=== PATIENT | female | born 1985 ===

== ENCOUNTER 2020-07-15 12:23 | Outpatient (REF) | payer OTHER, SELFPAY ==
[2020-07-15 12:59] LABS: MANUAL DIFF FLAG NO
[2020-07-15 13:15] LABS: Alanine Aminotransferase 14 U/L (0-31); Albumin Level 4.6 g/dL (3.5-5.0); Alkaline Phosphatase 56 U/L (39-117); Anion Gap 13 (12-20); Aspartate Amino Transferase 15 U/L (5-31); Bilirubin Total 0.6 mg/dL (0.0-1.0); Blood Urea Nitrogen 11 mg/dL (9-16); Calcium 9.3 mg/dL (8.4-10.2); Carbon Dioxide 26 mmol/L (22-29); Chloride 106 mmol/L (96-108); Cholesterol 213 mg/dL; Estimated Glomerular Filt Rate > 60; Glucose Fasting 90 mg/dL (60-99); HDL Cholesterol 56 mg/dL; LDL Cholesterol Calculated 147 mg/dl; Potassium 4.7 mmol/L (3.3-5.1); Sodium 140 mmol/L (135-145); Total Protein 7.3 g/dL (6.5-8.0); Triglycerides 54 mg/dL
[2020-07-15 13:16] LABS: Basophils Percent Auto 0.4 % (0-2); Eosinophils Percent Auto 0.2 % (0-4); Hematocrit 41.2 % (37-47); Hemoglobin 13.5 g/dl (12.0-16.0); Imm Gran Abs Auto 0.02 X10*3/uL (0.00-0.03); Imm Gran Pct Auto 0.4 % (0.0-0.4); Lymphocytes Absolute Auto 1.4 X10*3/uL (1.2-4.9); Lymphocytes Percent Auto 27.2 % (20-40); Mean Corpuscular HGB Conc 32.8 g/dl (31.0-35.0); Mean Corpuscular Volume 91.6 fL (80-98); Monocytes Absolute Auto 0.3 X10*3/uL (0.1-1.2); Monocytes Percent Auto 5.4 % (2-11); Neutrophils Absolute Auto 3.3 X10*3/uL (2.0-8.3); Neutrophils Percent Auto 66.4 % (45-73); Platelet Count 356 X10*3/uL (160-400); Red Cell Distribution Width 12.1 % (11.0-16.0)
== END 2020-07-15 12:24 | disposition home or self-care (01) ==
LOC: HO.LAB 12:23
PROVIDERS: PCP Internal Medicine; Visit Provider Internal Medicine
DX: R63.5 Abnormal weight gain (principal); D64.9 Anemia, unspecified; E78.5 Hyperlipidemia, unspecified
CPT/HCPCS: 36415; 80053; 80061; 84443; 85025

== ENCOUNTER 2020-09-23 14:32 | Outpatient (REF) | payer OTHER, SELFPAY ==
[2020-09-24 10:37] LABS: CT PCR NOT DETECTED (Not Detect.); NG PCR NOT DETECTED (Not Detect.)
[2020-09-26 22:46] LABS: HPV mRNA E6/E7 rflx Not Detected (Not Detected)
== END 2020-09-23 14:33 | disposition home or self-care (01) ==
LOC: HO.LAB 14:32
PROVIDERS: PCP Internal Medicine; Visit Provider Obstetrics & Gynecology
DX: Z01.419 Encounter for gynecological examination (general) (routine) without abnormal findings (principal); Z11.51 Encounter for screening for human papillomavirus (HPV); Z11.3 Encounter for screening for infections with a predominantly sexual mode of transmission; N88.9 Noninflammatory disorder of cervix uteri, unspecified
CPT/HCPCS: 87491; 87591; 87624; 88142

== ENCOUNTER 2020-10-21 10:11 | Outpatient (REF) | payer OTHER, SELFPAY | END 2020-10-21 10:12 | disposition home or self-care (01) | LOC: HO.LAB 10:11 | PROVIDERS: PCP Internal Medicine; Visit Provider Obstetrics & Gynecology | DX: N88.9 Noninflammatory disorder of cervix uteri, unspecified (principal) | CPT/HCPCS: 57454; 88305 ==

== ENCOUNTER → 2020-11-04 11:20 | Outpatient (BNVA) | payer OTHER, SELFPAY | PROVIDERS: PCP Internal Medicine; Visit Provider Obstetrics & Gynecology ==

== ENCOUNTER 2021-01-12 10:34 | Outpatient (REF) | payer OTHER, SELFPAY | END 2021-01-12 10:35 | disposition home or self-care (01) | LOC: HO.HMGCLDS 10:34 | PROVIDERS: PCP Internal Medicine; Visit Provider Internal Medicine | DX: Z20.822 Contact with and (suspected) exposure to COVID-19 (principal) | CPT/HCPCS: C9803; U0003; U0005 ==

== ENCOUNTER 2021-01-23 15:50 | Outpatient (REF) | payer OTHER, SELFPAY ==
--- NOTE | ~2021-01-23 | US_ITS ---
EXAMINATION: US THYROID CLINICAL INFORMATION: Nontoxic goiter, unspecified. COMPARISON: Ultrasound soft tissue neck 01/23/2015. Ultrasound soft tissue head/neck thyroid dated 04/30/2014. TECHNIQUE: Linear transducer grayscale and color Doppler examination with attention to the region of the thyroid. FINDINGS: SIZE: Measurements of the thyroid lobes and nodules are given in sagittal, anteroposterior and transverse dimensions respectively. Right Thyroid Lobe: 5.7 x 1.9 x 1.9 cm, volume 10.5 mL. Previously 5.1 x 1.7 x 1.4 cm, volume 6.6 mL. Parenchyma: The gland echotexture is homogeneous. Thyroid vascularity is normal. Left Thyroid Lobe: 4.8 x 1.1 x 1.9 cm, volume 4.9 mL. Previously 4.6 x 0.8 x 1.4 cm, volume 2.6 mL. Parenchyma: The gland echotexture is homogeneous. Thyroid vascularity is normal. Isthmus: 0.3 cm in maximum AP dimension. Previously 0.2 cm. Estimated total number of nodules greater than or equal to 1 cm: 0. Materials Management Supervisor nodules are described as follows: 1. Location: Right inferior. Size: 0.5 x 0.2 x 0.3 cm, volume 0.02 mL. Previously: Not documented on prior study. Nodule characteristics: Composition: Solid (2). Echogenicity: Isoechoic (1). Shape: Not taller than wide (0). Margins: Ill-defined (0). Echogenic Foci: None (0). ACR TI-RADS total points: 3 ACR TI-RADS category: 3 NODES: There is a small right cervical lymph node adjacent to the thyroid gland. This measures 1.1 x 0.5 x 0.2 cm in transverse sagittal and AP dimension. This is normal in size and demonstrates normal ultrasound morphology and flow.. US/US thyroid IMPRESSION: Slightly enlarged right lobe. Newly appreciated small solitary right thyroid nodule. ACR TI-RADS RECOMMENDATION REFERENCE: Ultrasound-guided fine-needle aspiration, followup ultrasound, no further follow up. * TR1 (0 point) and TR 2 (2 points): No FNA or follow up * TR3 (3 points): FNA if more than or equal to 2.5 cm in maximum dimension, followup ultrasound in 1, 3 and 5 years if 1.5 to 2.4 cm in maximum dimension. * TR4 (4-6 points): FNA if more than or equal to 1.5 cm in maximum dimension, followup ultrasound in 1, 2, 3 and 5 years if 1 to 1.4 cm in maximum dimension. * TR5 (more than or equal to 7 points): FNA if more than or equal to 1 cm in maximum dimension, followup ultrasound every year for 5 years if 0.5 to 0.9 cm in maximum dimension. * TR3, TR4 or TR5 nodules that are below the size threshold for follow up receive no follow up.
== END 2021-01-23 15:51 | disposition home or self-care (01) ==
LOC: HO.US 15:50
PROVIDERS: PCP Internal Medicine; Visit Provider Internal Medicine
DX: E04.9 Nontoxic goiter, unspecified (principal)
CPT/HCPCS: 76536

== ENCOUNTER 2021-03-11 12:01 | Outpatient (REF) | payer OTHER, SELFPAY | END 2021-03-11 12:02 | disposition home or self-care (01) | LOC: HO.HMGCLDS 12:01 | PROVIDERS: Visit Provider Internal Medicine | DX: Z20.822 Contact with and (suspected) exposure to COVID-19 (principal) | CPT/HCPCS: C9803; U0003; U0005 ==

== ENCOUNTER 2021-05-05 10:25 | Outpatient (REF) | payer OTHER, SELFPAY ==
[2021-05-05 11:24] LABS: COVID-19 Test Positive (Negative)
== END 2021-05-05 10:26 | disposition home or self-care (01) ==
LOC: HO.LAB 10:25
PROVIDERS: Visit Provider Internal Medicine
DX: Z20.822 Contact with and (suspected) exposure to COVID-19 (principal)
CPT/HCPCS: 87635; C9803

== ENCOUNTER 2022-02-22 09:47 | Outpatient (REF) | payer OTHER, SELFPAY ==
--- NOTE | ~2022-02-22 | XR_ITS ---
EXAMINATION: XR HAND, RIGHT CLINICAL INFORMATION: M65.331 - Trigger finger, right middle finger COMPARISON: None TECHNIQUE: Right hand is imaged in 3 views. FINDINGS: Normal bony mineralization. No acute or healing fracture, dislocation, destructive process. No joint narrowing or erosive change. XR/XR hand RT 2V IMPRESSION: Normal right hand.
--- NOTE | ~2022-02-22 | US_ITS ---
EXAMINATION: US THYROID CLINICAL INFORMATION: Nontoxic single thyroid nodule. COMPARISON: Ultrasound thyroid 01/23/2021 and 04/30/2014. TECHNIQUE: Linear transducer grayscale and color Doppler examination with attention to the region of the thyroid. FINDINGS: SIZE: Measurements of the thyroid lobes and nodules are given in sagittal, anteroposterior and transverse dimensions respectively. Right Thyroid Lobe: 5.9 x 1.2 x 1.9 cm, volume 7.1 mL. Previously 5.7 x 1.9 x 1.9 cm, volume 10.5 mL. Parenchyma: The gland echotexture is homogeneous. Thyroid vascularity is normal. Left Thyroid Lobe: 5.2 x 0.9 x 1.6 cm, volume 4.0 mL. Previously 4.8 x 1.1 x 1.9 cm, volume 4.9 mL. Parenchyma: The gland echotexture is homogeneous. Thyroid vascularity is normal. Isthmus: 0.3 cm in maximum AP dimension. Previously 0.3 cm. Estimated total number of nodules greater than or equal to 1 cm: 0. Wholesale Buyer nodules are described as follows: 1. Location: Right inferior. Size: 0.4 x 0.3 x 0.3 cm, volume 0.02 mL. Previously: 0.5 x 0.2 x 0.3 cm, volume 0.02 mL. Nodule characteristics: Composition: Solid (2). Echogenicity: Isoechoic (1). Shape: Not taller than wide (0). Margins: Smooth (0). Echogenic Foci: None (0). ACR TI-RADS total points: 3 Previous: 3 ACR TI-RADS category: 3 Previous: 3 Significant change in size (>/= 20% in 2 dimensions and minimal increase of 2 mm or 50% or greater increase in volume): Change in features: Change in ACR TI-RADS risk category: NODES: Small lymph node adjacent lower pole of the left lobe. This is normal in size and morphology. US/US thyroid IMPRESSION: Stable small right thyroid nodule. ACR TI-RADS RECOMMENDATION REFERENCE: Ultrasound-guided fine-needle aspiration, followup ultrasound, no further follow up. * TR1 (0 point) and TR 2 (2 points): No FNA or follow up. * TR3 (3 points): FNA if more than or equal to 2.5 cm in maximum dimension, followup ultrasound in 1, 3 and 5 years if 1.5 to 2.4 cm in maximum dimension. * TR4 (4-6 points): FNA if more than or equal to 1.5 cm in maximum dimension, followup ultrasound in 1, 2, 3 and 5 years if 1 to 1.4 cm in maximum dimension. * TR5 (more than or equal to 7 points): FNA if more than or equal to 1 cm in maximum dimension, followup ultrasound every year for 5 years if 0.5 to 0.9 cm in maximum dimension. * TR3, TR4 or TR5 nodules that are below the size threshold for followup receive no follow up.
== END 2022-02-22 09:48 | disposition home or self-care (01) ==
LOC: HO.US 09:47
PROVIDERS: Visit Provider Internal Medicine
DX: E04.1 Nontoxic single thyroid nodule (principal); M65.331 Trigger finger, right middle finger
CPT/HCPCS: 73120; 76536

== ENCOUNTER → 2022-09-30 12:45 | Outpatient (BNVA) | payer OTHER, SELFPAY | PROVIDERS: PCP Internal Medicine; Visit Provider Obstetrics & Gynecology ==

== ENCOUNTER 2022-10-06 21:45 | Emergency (ER) | payer OTHER, SELFPAY ==
--- NOTE | 2022-10-06 | ECG_ITS ---
Test Reason : chest pain Blood Pressure : / mmHG Vent. Rate : 092 BPM Atrial Rate : 092 BPM P-R Int : 162 ms QRS Dur : 070 ms QT Int : 366 ms P-R-T Axes : 056 022 018 degrees QTc Int : 452 ms Normal sinus rhythm Normal ECG When compared with ECG of 25-NOV-2011 11:21, No significant change was found Referred By: Generic ED Physician Electronically Signed By:MANI GARCIA
[2022-10-06 22:05] VITALS: BP 157/88; PULSE 95; RESP 16; TEMP 36.7; O2SAT 99
[2022-10-06 22:08] LABS: Hemoglobin 13.2 g/dl (12.0-16.0); Mean Corpuscular Hemoglobin 29.3 pg (27.0-33.0); Mean Corpuscular Volume 88.7 fL (80.0-98.0); Mean Platelet Volume 9.2 fL (9.4-12.3); Platelet Count 391 X10*3/uL (160-400); Red Blood Count 4.51 X10*6/uL (4.20-5.50); Red Cell Distribution Width 11.9 % (11.0-16.0); White Blood Count 7.5 X10*3/uL (4.8-10.8)
[2022-10-06 22:23] LABS: Alanine Aminotransferase 15 U/L (0-31); Albumin Level 4.3 g/dL (3.5-5.0); Alkaline Phosphatase 68 U/L (39-117); Anion Gap 13 (12-20); Aspartate Amino Transferase 16 U/L (5-31); Bilirubin Total 0.3 mg/dL (0.0-1.0); Blood Urea Nitrogen 11 mg/dL (9-16); Calcium 10.4 mg/dL (8.4-10.2); Carbon Dioxide 26 mmol/L (22-29); Chloride 105 mmol/L (96-108); Creatinine Clr Calc Pharmacy 105.7; Estimated Glomerular Filt Rate > 60; Glucose Random 103 mg/dL (60-115); Potassium 4.2 mmol/L (3.3-5.1); Sodium 140 mmol/L (135-145); Total Protein 7.7 g/dL (6.5-8.0)
--- NOTE | 2022-10-06 22:24 | ED_ITS ---
HPI - Chest Pain General Chief Complaint: Chest Pain Stated Complaint: Chest pain, L arm pain ( weight feeling) Time Seen by Provider: 10/06/22 22:16 Source: patient Mode of arrival: ambulatory Limitations: no limitations History of Present Illness HPI narrative: Patient 31 years old no significant past medical history not on any medication nonsmoker no family history of premature coronary artery disease level noticed palpitation lasted for 2- 3 minute followed by uneasy feeling and some pain in the left arm no diaphoresis no shortness of breath at this time patient denies any pain or palpitation never had similar symptoms in the past Related Data Home Medications Medication Instructions Recorded Confirmed No Known Home Meds 01/11/22 01/11/22 Allergies Allergy/AdvReac Type Severity Reaction Status Date / Time No Known Allergies Allergy Mild NOT Verified 10/06/22 22:11 [No Known Allergies*] APPLICABLE Review of Systems Review of Systems: Yes all other systems are reviewed and are negative PMFSH Past Medical History Medical History RUTHY I (cervical intraepithelial neoplasia I) COVID-19 vaccine series completed Obesity (BMI 30-39.9) Pure hypercholesterolemia Weight gain Surgical History No pertinent past surgical history Family History Family History Mother Hypertension Father Hypertension Diabetes Social History Social History Household Members: Spouse and Children Housing: Apartment Alcohol intake: current Alcohol intake frequency: holidays/special occasions only Patient Tobacco Use Status: Never used Tobacco e-Cigarette/Vaping Use: Never Used Second Hand Smoke Exposure: No Advance Directives: No Advance Directives Information Provided: No service: No Current 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 status: 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 Oriented X3. No acute distress. Eyes: PERRLA, ENT: Pharynx normal. Oral Mucosa moist Neck: Normal inspection. Neck supple. CVS: Normal heart rate and rhythm. Pulses normal. Respiratory: No respiratory distress. Equal air entry bilateral, Abdomen: Soft and nontender. Bowel sounds are present, Skin: Skin warm and dry. Normal skin color. Normal skin turgor. Extremities: No lower extremity edema. No calf tenderness Neuro: Oriented X 3. No motor deficit. Medical Decision Making Medical Decision Making [facility] Narrative: Patient has atypical chest pain with palpitation likely SVT heart score of 0 no acute ischemic changes troponin I negative will discharge patient home Lab Data [facility] Lab Attestation statement: I reviewed the patient's lab results. 10/06/22 22:01 10/06/22 22:01 Labs: Lab Results 10/06/22 10/06/22 10/06/22 Range/Units 22:01 22:01 22:01 WBC 7.5 (4.8-10.8) X10*3/uL RBC 4.51 (4.20-5.50) X10*6/uL Hgb 13.2 (12.0-16.0) g/dl Hct 40.0 (37.0-47.0) % MCV 88.7 (80.0-98.0) fL MCH 29.3 (27.0-33.0) pg MCHC 33.0 (31.0-35.0) g/dl RDW 11.9 (11.0-16.0) % Plt Count 391 (160-400) X10*3/uL MPV 9.2 L (9.4-12.3) fL Absolute Nucleated RBC 0.000 (0.0-0.012) X10*3/uL Nucleated RBC % (auto) 0.0 (0.0-0.2) /100WBC Sodium 140 (135-145) mmol/L Potassium 4.2 (3.3-5.1) mmol/L Chloride 105 (96-108) mmol/L Carbon Dioxide 26 (22-29) mmol/L Anion Gap 13 (12-20) BUN 11 (9-16) mg/dL Creatinine 0.75 (0.5-1.4) mg/dL Estim Creat Clear Calc 105.7 Estimated GFR > 60 Random Glucose 103 (60-115) mg/dL Calcium 10.4 H D (8.4-10.2) mg/dL Total Bilirubin 0.3 (0.0-1.0) mg/dL AST 16 (5-31) U/L ALT 15 (0-31) U/L Alkaline Phosphatase 68 (39-117) U/L Troponin I High Sens < 2.7 (<3.5-17.0) ng/L Total Protein 7.7 (6.5-8.0) g/dL Albumin 4.3 (3.5-5.0) g/dL Independent Interpretation I performed an independent interpretation of an: EKG Interpretation: Normal sinus rhythm heart rate 92 beats per minute normal interval normal axis no acute ischemic changes Discharge Plan Discharge Clinical Impression: Nonsustained paroxysmal supraventricular tachycardia Patient Disposition: Home, Self-Care Instructions: Supraventricular Tachycardia (ED) Additional Instructions: Likely you had SVT which is not life-threatening Avoid caffeine use Follow with PCP Report to the ER if recurrence of similar episode if it stays longer Prescriptions: No Action No Known Home Meds Interventions: ED Discharge Assessment Last Done: 10/06/22 22:49 Discharge Date/Time: 10/06/22 22:49
[2022-10-06 22:32] LABS: Troponin-I High Sensitivity < 2.7 ng/L (<3.5-17.0)
[2022-10-06 22:45] VITALS: BP 116/75; PULSE 81; RESP 17; O2SAT 97
== END 2022-10-06 22:49 | disposition home or self-care (01) ==
PROVIDERS: Emergency Provider Internal Medicine; PCP Internal Medicine
DX: I47.1 Supraventricular tachycardia (principal); E78.00 Pure hypercholesterolemia, unspecified
CPT/HCPCS: 36415; 80053; 84484; 85027; 93005; 99283; 99284

== ENCOUNTER 2022-11-28 11:30 | Emergency (ER) | payer OTHER, SELFPAY ==
[2022-11-28 11:39] VITALS: BP 127/92; PULSE 127; RESP 18; TEMP 37.1; O2SAT 98; BMI 29.6
--- NOTE | 2022-11-28 11:49 | ED_ITS ---
HPI - General Adult General Chief complaint: Upper Respiratory Symptoms Stated complaint: Sore throat Time Seen by Provider: 11/28/22 12:08 Source: patient Mode of arrival: ambulatory Limitations: no limitations History of Present Illness HPI narrative: Patient is a 37-year-old female presenting to the emergency department with complaint of sore throat and fever since yesterday. Reports she last took any medication at 5:00 a.m. today. Denies cough or nasal congestion, denies ear pain. Denies sick contacts at home. Reports pain is worse with swallowing/eating. Denies any shortness of breath. complaint: Sore throat, fever Onset (ago): day(s) Radiation: non-radiation Severity: severe Quality: burning Pain Consistency: constant Relieving factors: none Exacerbating factors: eating Associated symptoms: fever/chills Treatments prior to arrival: NSAID Related Data Previous Rx's Medication Instructions Recorded penicillin V potassium 500 mg 500 mg PO BID 10 days #19 tabs 11/28/22 tablet Allergies Allergy/AdvReac Type Severity Reaction Status Date / Time No Known Allergies Allergy Mild NOT Verified 11/28/22 11:39 [No Known Allergies*] APPLICABLE Review of Systems Review of Systems: As per HPI. Yes all other systems are reviewed and are negative Constitutional: Constitutional: Reports as per HPI [facility] Past Medical History Medical History RUTHY I (cervical intraepithelial neoplasia I) COVID-19 vaccine series completed Obesity (BMI 30-39.9) Pure hypercholesterolemia Weight gain Surgical History No pertinent past surgical history Family History Family History Mother Hypertension Father Hypertension Diabetes Social History Social History Household Members: Spouse and Children Housing: Apartment Alcohol intake: current Alcohol intake frequency: holidays/special occasions only Patient Tobacco Use Status: Never used Tobacco e-Cigarette/Vaping Use: Never Used Second Hand Smoke Exposure: No Advance Directives: No Advance Directives Information Provided: Yes service: No Current 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 Blood pressure elevated. Heart rate tachycardic. Respiratory rate normal. Temperature normal. Oxygen saturation normal. Const General: cooperative, healthy appearing and no acute distress Orientation/consciousness: oriented to person, oriented to place, oriented to time and patient oriented x3 Limitations: no limitations HENMT Head: Yes normocephalic and Yes atraumatic Ears: external ears normal General nose exam: Normal external nose present Face and sinus: Yes face symmetric Mouth: Normal oral and palatal mucosa present, oropharynx normal, moist mucous membranes, no audible dysphonia and no drooling Throat: Yes uvula midline, Yes abnormal tonsil (bilateral erythema, left tonsil lar exudate), No peritonsillar mass and No uvular edema Eyes Pupils: Equal, round and reactive pupils present Neck Neck: Yes normal visual inspection and Yes supple Resp Effort & Inspection: normal respiratory effort and able to speak in complete sentences Auscultation: clear to auscultation bilaterally Cardio Rate: regular rate Rhythm: regular rhythm Heart sounds: S1 normal heart sound present and S2 normal heart sound present GI Palpation (GI): Soft to palpation and nontender Auscultation: normoactive bowel sounds General: Yes no CVA tenderness Back/Spine/Pelvis Back: no CVA tenderness Skin General skin exam: elasticity normal and turgor normal Neuro General: oriented to person, oriented to place, oriented to time, patient oriented x3, moves all extremities, no focal motor deficits and CN's II-XI intact bilaterally Cranial nerves: Yes Equal, round and reactive pupils present Cognition (Neuro): normal cognition Extrem General: Yes full ROM, Yes no pedal edema and Yes no calf tenderness Psych Mental Status: mental status grossly normal Affect: normal affect Thought process: Normal thought process present Course Course Course Narrative: RME: 37 yold female presents to the ED for sore throat and fever since yesterday. Physical exam positive for let tonsil exudates. No physical exam signs of peritonsillar abscess. strep/covid/influenxa ordered Medications Administered Discontinued Medications Generic Name Dose Route Start Last Admin Trade Name Donald PRN Reason Stop Dose Admin Acetaminophen 650 mg 11/28/22 12:09 11/28/22 12:34 Acetaminophen 325 Mg Tablet PO 11/28/22 12:10 650 mg ONCE ONE Administration Sodium Chloride 1,000 mls @ 999 mls/hr 11/28/22 12:15 11/28/22 13:20 Ns IV 11/28/22 13:15 Infused .Q1H1M THAIS Infusion Ibuprofen 600 mg 11/28/22 12:09 11/28/22 12:35 Ibuprofen 600 Mg Tablet PO 11/28/22 12:10 600 mg ONCE ONE Administration Penicillin V Potassium 500 mg 11/28/22 12:10 11/28/22 12:34 Penicillin V Potassium 250 Mg Tablet PO 11/28/22 12:11 500 mg ONCE ONE Administration Medical Decision Making Medical Decision Making MDM Narrative: 12:00 Patient is a 37-year-old female presenting to the emergency department with complaint of sore throat and fever since yesterday. On exam patient is awake, A+Ox3, VS WNL, afebrile, normal neurological exam without focal deficits, tonsillar erythema with left tonsillar exudate, uvula midline. Given reported symptoms and physical exam findings, initial differential includes strep pharyngitis, viral illness such as Covid, influenza. Do not suspect peritonsillar abscess based on physical exam findings. Do not suspect sepsis. 12:10 Rapid strep positive, patient updated on results, flu and Covid pending. Will medicate patient with Tylenol, ibuprofen, IV fluids and PCN VK at this time. 13:25 Flu and Covid both negative. Heart rate improved with fluids and pain medications. Patient able to tolerate PO. Feel patient is stable for discharge home on penicillin for 10 days. Instructed patient to follow-up with PCP. Return precautions discussed at bedside. Patient verbalized understanding of and agreement with plan. Differential Diagnosis Differential Diagnoses: The differential diagnosis associated with the presentation includes As per MDM. Lab Data [facility] Lab Attestation statement: I reviewed the patient's lab results. As per MDM. Labs: Lab Results 11/28/22 11/28/22 11/28/22 Range/Units 11:55 11:55 11:55 COVID-19 (TERENCE) Negative (Negative) COVID-19 Clin Com See Note Influenza Type A (ANTOINETTE) Negative (Negative) Influenza Type B (ANTOINETTE) Negative (Negative) Influenza A & B Note See Note S. pyogenes GrpA ANTOINETTE Positive A (Negative) External Record Review External record reviewed: Inpatient record, Office record and Outpatient record Prescription Management I considered prescription management with: Antibiotic Discharge Plan Discharge Clinical Impression: Acute streptococcal pharyngitis Patient Disposition: Home, Self-Care Instructions: Pharyngitis (ED), Strep Throat (DC) Additional Instructions: Usted fue evaluado en el departamento de emergencias hoy por fiebre. Smiht evaluaci?n, que incluye hisopos de estreptococo, gripe y covid, sugiere que los s?ntomas se deben a faringitis estreptoc?cica. Alterne Tylenol y Motrin cada 4 horas para ayudar a controlar la fiebre. Le est?n recetando antibi?ticos para tratar la infecci?n bacteriana en smith garganta, complete el curso completo seg?n lo prescrito. Le dieron la primera dosis en el servicio de urgencias hoy, tome la siguiente dosis a la hora de acostarse. Joseph un seguimiento con smith proveedor de atenci?n primaria esta semana. Regrese al departamento de emergencias de inmediato si experimenta un empeoramiento del dolor de garganta, dificultad para tragar, dificultad para respirar, tos intensa, fiebre superior a 100.4? F que no se puede controlar con Tylenol/ibuprofeno, v?mitos recurrentes, letargo, convulsiones, dificultad para respirar o cualquier otros s?ntomas preocupantes. Prescriptions: New penicillin V potassium 500 mg tablet 500 mg PO BID 10 Days Qty: 19 0RF Print Language: Fijian
--- NOTE | 2022-11-28 11:57 | PC.NURSE ---
viral swabs obtained- sent to lab
[2022-11-28 12:07] LABS: IDNOW Serial# 08D9AD1C; Strep A Nucleic Acid Positive (Negative)
[2022-11-28 12:14] LABS: COVID-19 Test Negative (Negative); IDNOW Serial# 9DB6401D
[2022-11-28 12:18] LABS: IDNOW Serial# BCCEAD1C; Influenza A Negative (Negative); Influenza B2 Negative (Negative)
[2022-11-28] MEDS: 0.9 % Sodium Chloride 1,000 ML 999 ML IV (12:28)
[2022-11-28] MEDS: Acetaminophen 325 MG TABLET 650 MG PO (12:34)
[2022-11-28] MEDS: Penicillin V Potassium 250 MG TABLET 500 MG PO (12:34)
[2022-11-28] MEDS: Ibuprofen 600 MG TABLET PO (12:35)
--- NOTE | 2022-11-28 12:36 | PC.NURSE ---
pt medicated per MAR- 20G iv placed in RAC infusing 1L NS as ordered. call forrest within reach
[2022-11-28 13:24] VITALS: BP 101/60; PULSE 106; RESP 16; TEMP 37.7; O2SAT 98
== END 2022-11-28 13:45 | disposition home or self-care (01) ==
PROVIDERS: Physician Assistant; Emergency Provider Emergency Medicine Emergency Medical Services; PCP Internal Medicine
DX: J02.0 Streptococcal pharyngitis (principal); Z20.822 Contact with and (suspected) exposure to COVID-19; Z20.828 Contact with and (suspected) exposure to other viral communicable diseases; Z79.899 Other long term (current) drug therapy
CPT/HCPCS: 87502; 87635; 87651; 99284

== ENCOUNTER 2023-02-01 15:51 | Outpatient (AMB) | payer OTHER, SELFPAY ==
[2023-02-01 15:52] VITALS: BP 108/70; PULSE 91; O2SAT 99; BMI 29.5
--- NOTE | 2023-02-01 15:52 | MHC.PC.OV ---
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: No Accompanied by: Self / Same As Patient Allergies No Known Allergies [No Known Allergies*] Allergy (Mild, Verified 02/01/23 16:09) NOT APPLICABLE Medication List - Last Reconciled 02/01/23 by Massiel Bui MD No Known Home Meds Tobacco use date assessed: 02/01/23 Dental Screening Dental Screen Date: 02/01/23 Did you have a dental visit in the last 12 months?: Yes Did you have a dental problem in the last 6 months where you did not have access to dental care?: No Was dental information given to patient?: Patient has dentist HPI HPI Comments History of Present Illness Details This is a 37-year-old female that comes for her physical exam. Last Pap smear was 2020 and was normal. Complains of occasional chest pain that happens at rest in the left side of the chest and I will order EKG. Chest pain started about 2 weeks ago. [facility] Medical History (Updated 02/01/23 @ 16:14 by Massiel Bui MD) Obesity (BMI 30-39.9) Pure hypercholesterolemia COVID-19 vaccine series completed RUTHY I (cervical intraepithelial neoplasia I) Weight gain Surgical History No pertinent past surgical history Family History Mother Hypertension Father Hypertension Diabetes Social History Household Members: Spouse and Children Housing: Apartment Alcohol intake: current Alcohol intake frequency: holidays/special occasions only Patient Tobacco Use Status: Never used Tobacco e-Cigarette/Vaping Use: Never Used Second Hand Smoke Exposure: No service: No Current 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 status: 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 1. Little interest or pleasure in doing things: not at all 2. Feeling down, depressed, or hopeless: not at all 3. Trouble falling or staying asleep, or sleeping too much: not at all 4. Feeling tired or having little energy: not at all 5. Poor appetite or overeating: not at all 6. Feeling bad about yourself - or that you are a failure or have let yourself or your family down: not at all 7. Trouble concentrating on things, such as reading the newspaper or watching television: not at all 8. Moving or speaking so slowly that other people could have noticed. Or the opposite - being so fidgety or restless that you have been moving around a lot more than usual: not at all 9. Thoughts that you would be better off or of hurting yourself in some way: not at all Total score: 0 Depression Screening Interpretation: Negative Depression Screening Done: Yes 07194 - PHQ-9 Billing: Yes Source: Developed by Drs. Jacoby Sheppard, Marci Dangelo, Luis Alberto Moraes and colleagues, with an educational melecio from [employer]. Thrive Questionnaire Date Thrive assessed: 02/01/23 I am a: Patient What is your living situation today?: I have a steady place to live Within the past 12 months, did the food you bought not last and you didn't have the money to get more?: Never true Within the past 12 months, did you worry whether your food would run out before you got money to buy more?: Never true Do you have trouble paying for medicines?: No Do you have trouble getting transportation to medical appointments?: No Do you have trouble paying your heating and electricity bill?: No Do you have trouble taking care of your child, family member or friend?: No Do you have trouble with day-to-day activities such as bathing, preparing meals, shopping, managing finances, etc.?: No Are you currently unemployed and looking for a job?: No Are you interested in more education?: No Please select the resources that you would like help with: None Currently or been in a relationship where the following occur: no concerns reported AUDIT C Alcohol Use Questionnaire (AUDIT-C) 1. How often do you have a drink containing alcohol?: Never Total Score: 0 FARZAD-7 AMB Questionnaire FARZAD-7 Date FARZAD - 7 assessed: 02/01/23 Feeling nervous, anxious, or on edge: 1 = Several days Not being able to stop or control worryin = Not at all Worrying too much about different things: 2 = More than half the days Trouble relaxin = Not at all Being so restless that it is hard to sit still: 0 = Not at all Becoming easily annoyed or irritable: 1 = Several days Feeling afraid as if something awful might happen: 1 = Several days Total FARZAD-7 score (0-4 normal; 5-9 mild; 10-14 moderate; 15-21 severe): 5 Source: Developed by Drs. Jacoby Sheppard, Marci Dangelo, Luis Alberto Moraes and colleagues, with an educational melecio from [employer]. FARZAD-7 Assessment Billing FARZAD-7 Assessment Tool: FARZAD-7 Assessment 97795 Review of Systems Const All systems reviewed & are unremarkable except as noted in HPI and below Eyes Reports no additional complaints, Denies change in vision and Denies other visual disturbances Card Reports chest pain at rest, Denies chest pain with activity, Denies edema, Denies irregular heart rhythm, Denies claudication, Denies dyspnea, Denies dyspnea on exertion, Denies orthopnea, Denies paroxysmal nocturnal dyspnea and Denies slow heart rate Resp Denies cough, Denies dyspnea and Denies dyspnea on exertion GI Denies abdominal pain, Denies change in bowel habits, Denies excessive flatus, Denies nausea and Denies vomiting Denies urinary incontinence, Denies urinary hesitancy and Denies urinary urgency Musc Denies abnormal gait, Denies atrophy, Denies deformity and Denies limited range of motion Skin/Breast Denies bleeding lesions, Denies changing lesions and Denies rash Neuro Denies abnormal gait and Denies lack of coordination Physical exam (Primary Care) Vital Signs: Last Vital Signs Pulse 91 02/01/23 15:52 BP 108/70 02/01/23 15:52 Pulse Ox 99 02/01/23 15:52 Oxygen Delivery Method Room Air 02/01/23 15:52 BMI result Body Mass Index 29.5 Tobacco/Smoking Status: Tobacco use Status Tobacco use date assessed 02/01/23 02/01/23 15:59 Patient Tobacco Use Status Never used Tobacco 02/01/23 15:59 e-Cigarette/Vaping Use Never Used 02/01/23 15:59 PHQ-9: PHQ-9 Score PHQ-9: Total score 0 02/01/23 15:59 Depression Screening Interpretation: Negative Thrive Assessment: Date of Thrive Assessment Date Thrive assessed 02/01/23 02/01/23 15:59 Currently or been in a relationship where the following occur: no concerns reported Const Orientation/consciousness: patient oriented x3 HENMT Head: Yes normal to inspection, Yes normocephalic and Yes atraumatic Ears: external ears normal Eyes General: appearance normal, both eyes and all related structures Eyelids: Yes eyelids normal Conjunctivae: conjunctivae normal Neck Neck: Yes normal visual inspection and Yes supple Resp Effort & Inspection: normal respiratory effort Auscultation: clear to auscultation bilaterally Cardio Jugular venous distension: no JVD Rate: regular rate Rhythm: regular rhythm Heart sounds: S1 normal heart sound present and S2 normal heart sound present GI Inspection: Yes normal to inspection Palpation (GI): Soft to palpation and nontender Auscultation: normal bowel sounds Skin General skin exam: no rashes or lesions noted Neuro General: patient oriented x3 and no focal motor deficits Extrem General: Yes full ROM Psych Appearance: grossly normal Office Procedures Flu Questionnaire Does the patient have a severe egg allergy?: No Immunizations flu vacc [id number] 6mos up(PF) 60 mcg(15 mcgx4)/0.5 mL IM syringe Performing Provider: Massiel Bui MD [facility] Documented (not given) by: KHALIF Davis on 02/01/23 16:00 Reason Not Given: Patient Refused Assessment and Plan Assessment & Plan (1) Encounter for physical examination: Code(s): Z00.00 - Encounter for general adult medical examination without abnormal findings Plan: Repeat in a year Orders: Orders Influenza [id number] Immunization Today Z23 - Encounter for immunization Lipid Panel Today E78.5 - Hyperlipidemia, unspecified, Z00.00 - Encounter for general adult medical examination without abnormal findings Comprehensive [place]. Panel Fast Today Z00.00 - Encounter for general adult medical examination without abnormal findings ECG 12 lead EKG Today R07.89 - Other chest pain Coding Level of Care Code Est Pt Prev Care 18-39y(63777) Diagnoses Encounter for physical examination Z00.00 Additional Codes FARZAD-7 Assessment Billing - FARZAD-7 Assessment Tool: FARZAD-7 Assessment 41621 ([id number]) Time Spent (min) 31
== END 2023-02-01 16:17 | disposition home or self-care (01) ==
PROVIDERS: PCP Internal Medicine; Visit Provider Internal Medicine
DX: Z00.00 Encounter for general adult medical examination without abnormal findings (principal)
CPT/HCPCS: 99395

== ENCOUNTER 2023-02-21 09:44 | Outpatient (AMB) | payer OTHER, SELFPAY ==
[2023-02-21 11:07] VITALS: BP 130/80; PULSE 98; O2SAT 99; BMI 29.0
--- NOTE | 2023-02-21 11:07 | AM.OFFWIN_ITS ---
Intake Vital Signs 02/21/23 11:07 Height 5 ft 4 in Weight 76.771 kg BMI 29.0 BP 130/80 Blood Pressure Location Rt brachial Position Sitting Pulse 98 Pulse Source Pulse Oximeter Pulse Oximetry (%) 99 Oxygen Delivery Method Room Air Intake Visit Reasons: EP [place] eye right Intake Note: Patient is here today for for tooth pain which started Tuesday, also pt states now her Rt eye is hurting. Patient Tobacco Use Status: Never used Tobacco Allergies No Known Allergies [No Known Allergies*] Allergy (Mild, Verified 02/21/23 11:08) NOT APPLICABLE Do you need a note to return to daycare/school/sports/work: No HPI EP [place] eye right HPI Details Patient presents mild irritation of the right eye that began yesterday then this morning her eye was crusted shut. She denies acute trauma known foreign body or sick contacts. She denies any symptoms of upper respiratory infection, congestion eye pain or vision changes. 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 status: 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: No Sexual orientation: Straight/Heterosexual Gender identity: Female Cognitive needs: No Hearing needs: No Vision needs: No Female Reproductive History Menstrual Age of Menarche: 10 Review of Systems Const Reports as per HPI and Reports no additional complaints Eyes Reports no additional complaints ENT Reports no additional complaints and Reports as per HPI Skin/Breast Denies lesions Neuro Reports no additional complaints and Reports as per HPI Physical Exam Vital Signs: Last Vital Signs Pulse 98 02/21/23 11:07 BP 130/80 02/21/23 11:07 Pulse Ox 99 02/21/23 11:07 Oxygen Delivery Method Room Air 02/21/23 11:07 BMI result Body Mass Index 29.0 Const General: cooperative, comfortable and no acute distress Orientation/consciousness: patient oriented x3 Eyes Other: No foreign body noted on gross exam Alignment and Position: alignment normal Periorbital: periorbital findings normal Eyelids: Yes eyelids normal Conjunctivae: conjunctival abnormal right (Mild injection) Sclerae: scleral abnormal (Mild injection) right Corneas: corneas normal EOM: EOMs intact bilaterally (No pain) Neuro General: patient oriented x3 Assessment & Plan Assessment & Plan (1) Conjunctivitis: Code(s): H10.9 - Unspecified conjunctivitis Qualifiers: Conjunctivitis type: acute Acute conjunctivitis type: unspecified Laterality: right Qualified Code(s): H10.31 - Unspecified acute conjunctivitis, right eye Plan: Will treat with Polytrim drops. Return to clinic or seek care from eye professional symptoms do not resolve. Medications: New polymyxin B sulf-trimethoprim 10,000 unit- 1 mg/mL (Polytrim) while awake; do not exceed 6 doses in 24 hours 1 drp ophthalmic-Right QID 7 days 10 mL 0RF left eye conjuntivitis Coding Level of Care Code Est Pt Level 3 (30077) Diagnoses Acute conjunctivitis of right eye, unspecified acute conjunctivitis type H10.31 Conjunctivitis type: acute Acute conjunctivitis type: unspecified Laterality: right
== END 2023-02-21 11:38 | disposition home or self-care (01) ==
PROVIDERS: PCP Internal Medicine; Visit Provider Physician Assistant
DX: H10.31 Unspecified acute conjunctivitis, right eye (principal)
CPT/HCPCS: 99213

== ENCOUNTER 2023-10-03 11:23 | Outpatient (AMB) | payer OTHER, SELFPAY ==
[2023-10-03 12:04] VITALS: BP 124/82; BMI 29.2
--- NOTE | 2023-10-03 12:04 | MHC.OFFVIS ---
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 No complaints. Last Pap/HPV was negative in 10/06 [facility] Medical History Obesity (BMI 30-39.9) Pure hypercholesterolemia COVID-19 vaccine series completed RUTHY I (cervical intraepithelial neoplasia I) Weight gain Surgical History No pertinent past surgical history Family History Mother Hypertension Father Hypertension Diabetes Social History Household Members: Spouse and Children Housing: Apartment Alcohol intake: current Alcohol intake frequency: holidays/special occasions only Patient Tobacco Use Status: Never used Tobacco e-Cigarette/Vaping Use: Never Used Second Hand Smoke Exposure: No service: No Current 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 status: 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: No Sexual orientation: Straight/Heterosexual Gender identity: Female Cognitive needs: No Hearing needs: No Vision needs: No Female Reproductive History Menstrual Age of Menarche: 10 Date of last menstrual period: 09/22/23 Total pregnancies: 4 Full term: 4 Number of Living Children: 4 Date of last pap smear: 09/24/20 Review of Systems Const All systems reviewed & are unremarkable except as noted in HPI and below Card Reports as per HPI Resp Reports as per HPI GI Reports as per HPI and Reports no additional complaints Reports as per HPI Physical Exam Vital Signs: Last Vital Signs BP 124/82 10/03/23 12:04 BMI result Body Mass Index 29.2 Const General: cooperative, healthy appearing and comfortable Chest Chest palpation & inspection: normal inspection of the chest and normal palpation of entire chest wall Breast/axilla inspection: normal inspection of the breasts and normal inspection of the axillae Breast/axilla palpation: normal palpation of the breasts, normal palpation of the axillae and no axillary lymphadenopathy Resp Effort & Inspection: normal respiratory effort Auscultation: clear to auscultation bilaterally Percussion: percussion normal Cardio Palpation: normal PMI Rate: regular rate Rhythm: regular rhythm Heart sounds: no murmurs and no rubs Peripheral pulses: Peripheral pulses 2+ throughout GI Inspection: Yes normal to inspection Palpation (GI): Soft to palpation, nontender, no guarding, not rigid and No hepatosplenomegaly present Percussion: Yes normal to percussion Auscultation: normal bowel sounds Rectal Exam - Female: deferred General: Yes bladder normal to palpation External Female Exam: No lesion Speculum Exam - Vagina: normal appearance of the vagina, normal palpation, normal vaginal discharge and not erythematous Speculum Exam - Cervix: normal appearance of the cervix and normal palpation Bimanual exam- vagina & uterus: normal bimanual exam, normal palpation, uterine size normal, bladder normal to palpation, consistency normal and normal palpation Bimanual Exam- Adnexa, other: normal adnexae, no masses and no tenderness Assessment & Plan Assessment & Plan (1) Well woman exam: Comment: RUTHY 1 in 2019 in 2020 followed by negative co testing in 2020 Code(s): Z01.419 - Encounter for gynecological examination (general) (routine) without abnormal findings Category: Medical Plan: Cotesting not indicated this year. Counseled the patient about the recommended dietary allowance of 1000 mg of Calcium & 600 IU of vitamin D. The patient was instructed to perform monthly self-breast exams and to schedule an annual exam in a year; All questions answered and the patient verbalized understanding. Instructed the patient to schedule annual exam in a year Coding Level of Care Code Est Pt Prev Care 18-39y(46425) Diagnoses Well woman exam Z01.419
== END 2023-10-03 12:56 | disposition home or self-care (01) ==
PROVIDERS: PCP Internal Medicine; Visit Provider Obstetrics & Gynecology
DX: Z01.419 Encounter for gynecological examination (general) (routine) without abnormal findings (principal)
CPT/HCPCS: 99395

== ENCOUNTER → 2023-10-03 11:23 | Outpatient (BNVA) | payer OTHER, SELFPAY | PROVIDERS: PCP Internal Medicine; Visit Provider Obstetrics & Gynecology | DX: Z01.419 Encounter for gynecological examination (general) (routine) without abnormal findings (principal) | CPT/HCPCS: 99395 ==

== ENCOUNTER 2024-02-06 17:14 | Outpatient (AMB) | payer OTHER, SELFPAY ==
[2024-02-06 17:23] VITALS: BP 118/80; BMI 30.6
--- NOTE | 2024-02-06 17:23 | MHC.PC.OV ---
Vital Signs 02/06/24 17:23 Height 5 ft 4 in Weight 178 lb BMI 30.6 BP 118/80 Blood Pressure Location Lt brachial Position Sitting Intake Visit Reasons: PE Intake Note: Patient here for a physical exam Hot Roll Laminator Required: No Accompanied by: Self / Same As Patient Allergies No Known Allergies [No Known Allergies*] Allergy (Mild, Verified 02/06/24 17:32) NOT APPLICABLE Medication List - Last Reconciled 02/06/24 by Massiel Bui MD No Known Home Meds Tobacco use date assessed: 02/06/24 Dental Screening Dental Screen Date: 02/06/24 Did you have a dental visit in the last 12 months?: Yes Did you have a dental problem in the last 6 months where you did not have access to dental care?: No Was dental information given to patient?: Patient has dentist HPI HPI Comments History of Present Illness Details This is a 38 year old female that comes for her physical exam. Pap smear done 2020. She complaints of diffuse joint pain but more prominent in left shoulder and thoracic spine. Declines previous trauma. Would be refer to rheumatology. Also has chest wall pain and EKG and Chest X-ray will be ordered. [facility] [place] Medical History (Updated 02/06/24 @ 17:42 by Massiel Bui MD) Obesity (BMI 30-39.9) Pure hypercholesterolemia COVID-19 vaccine series completed RUTHY I (cervical intraepithelial neoplasia I) Weight gain Surgical History No pertinent past surgical history Family History Mother Hypertension Father Hypertension Diabetes Social History (Updated 02/06/24 @ 17:35 by Massiel Bui MD) Household Members: Spouse and Children Housing: Apartment Alcohol intake: current Alcohol intake frequency: a few times a month Alcohol type: beer and wine Patient Tobacco Use Status: Never used Tobacco e-Cigarette/Vaping Use: Never Used Second Hand Smoke Exposure: No service: No Current 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 status: 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 1. Little interest or pleasure in doing things: not at all 2. Feeling down, depressed, or hopeless: not at all 3. Trouble falling or staying asleep, or sleeping too much: several days 4. Feeling tired or having little energy: several days 5. Poor appetite or overeating: not at all 6. Feeling bad about yourself - or that you are a failure or have let yourself or your family down: not at all 7. Trouble concentrating on things, such as reading the newspaper or watching television: not at all 8. Moving or speaking so slowly that other people could have noticed. Or the opposite - being so fidgety or restless that you have been moving around a lot more than usual: not at all 9. Thoughts that you would be better off or of hurting yourself in some way: not at all Total score: 2 Depression Screening Interpretation: Negative Depression Screening Done: Yes 03477 - PHQ-9 Billing: Yes Source: Developed by Drs. Jacoby Sheppard, Marci Dangelo, Luis Alberto Moraes and colleagues, with an educational melecio from [employer]. Thrive Questionnaire Date Thrive assessed: 02/06/24 I am a: Patient What is your living situation today?: I have a steady place to live Within the past 12 months, did the food you bought not last and you didn't have the money to get more?: Never true Within the past 12 months, did you worry whether your food would run out before you got money to buy more?: Never true Do you have trouble paying for medicines?: No Do you have trouble getting transportation to medical appointments?: No Do you have trouble paying your heating and electricity bill?: No Do you have trouble taking care of your child, family member or friend?: No Do you have trouble with day-to-day activities such as bathing, preparing meals, shopping, managing finances, etc.?: No Are you currently unemployed and looking for a job?: No Are you interested in more education?: No Please select the resources that you would like help with: None Currently or been in a relationship where the following occur: No concerns reported THRIVE Score: 0 AUDIT C Alcohol Use Questionnaire (AUDIT-C) 1. How often do you have a drink containing alcohol?: 2-4 times a month 2. How many drinks containing alcohol do you have on a typical day when you are drinking?: 1 or 2 3. How often do you have six or more drinks on one occasion?: Never Total Score: 2 Score Reviewed/Action Taken: No FARZAD-7 AMB Questionnaire FARZAD-7 Date FARZAD - 7 assessed: 02/06/24 Feeling nervous, anxious, or on edge: 1 = Several days Not being able to stop or control worryin = Several days Worrying too much about different things: 1 = Several days Trouble relaxin = Several days Being so restless that it is hard to sit still: 0 = Not at all Becoming easily annoyed or irritable: 1 = Several days Feeling afraid as if something awful might happen: 1 = Several days Total FARZAD-7 score (0-4 normal; 5-9 mild; 10-14 moderate; 15-21 severe): 6 Source: Developed by Drs. Jacoby Sheppard, Marci Dangelo, Luis Alberto Moraes and colleagues, with an educational melecio from [employer]. FARZAD-7 Assessment Billing FARZAD-7 Assessment Tool: FARZAD-7 Assessment 41202 Review of Systems Const All systems reviewed & are unremarkable except as noted in HPI and below Card Denies chest pain at rest, Denies chest pain with activity, Denies edema, Denies irregular heart rhythm, Denies claudication, Denies dyspnea, Denies dyspnea on exertion, Denies orthopnea, Denies paroxysmal nocturnal dyspnea and Denies slow heart rate Resp Denies cough, Denies dyspnea and Denies dyspnea on exertion Musc Reports arthralgias Physical exam (Primary Care) Vital Signs: Last Vital Signs BP 118/80 02/06/24 17:23 BMI result Body Mass Index 30.6 Tobacco/Smoking Status: Tobacco use Status Tobacco use date assessed 02/06/24 02/06/24 17:34 Patient Tobacco Use Status Never used Tobacco 02/06/24 17:35 e-Cigarette/Vaping Use Never Used 02/06/24 17:35 PHQ-9: PHQ-9 Score PHQ-9: Total score 2 02/06/24 17:35 Depression Screening Interpretation: Negative Thrive Assessment: Date of Thrive Assessment Date Thrive assessed 02/06/24 02/06/24 17:34 Currently or been in a relationship where the following occur: No concerns reported Const Orientation/consciousness: patient oriented x3 HENNM Head: Yes normal to inspection, Yes normocephalic and Yes atraumatic Ears: external ears normal Eyes General: appearance normal, both eyes and all related structures Eyelids: Yes eyelids normal Conjunctivae: conjunctivae normal Neck Neck: Yes normal visual inspection and Yes supple Resp Effort & Inspection: normal respiratory effort Auscultation: clear to auscultation bilaterally Cardio Jugular venous distension: no JVD Rate: regular rate Rhythm: regular rhythm Heart sounds: S1 normal heart sound present and S2 normal heart sound present GI Inspection: Yes normal to inspection Palpation (GI): Soft to palpation and nontender Auscultation: normal bowel sounds Skin General skin exam: no rashes or lesions noted Neuro General: patient oriented x3 and no focal motor deficits Extrem General: Yes full ROM Psych Appearance: grossly normal Office Procedures Flu Questionnaire Does the patient have a severe egg allergy?: No Immunizations Fluarix Triv [id number] (PF) 45 mcg (15 mcg x 3)/0.5 mL IM syringe Performing Provider: Massiel Bui MD [facility] [place] [facility] Documented (not given) by: KHALIF Davis on 02/06/24 17:35 Reason Not Given: Patient Refused Coding Level of Care Code Est Pt Level 3 (18233) Est Pt Prev Care 18-39y(17097) Diagnoses Encounter for physical examination Z00.00 Polyarthralgia M25.50 Thoracic spine pain M54.6 Left shoulder pain M25.512 Chest wall pain R07.89 Additional Codes FARZAD-7 Assessment Billing - FARZAD-7 Assessment Tool: FARZAD-7 Assessment 84650 ([id number]) Time Spent (min) 33 Assessment & Plan Assessment & Plan (1) Encounter for physical examination: Code(s): Z00.00 - Encounter for general adult medical examination without abnormal findings Category: Medical Plan: Repeat in a year. (2) Polyarthralgia: Code(s): M25.50 - Pain in unspecified joint Category: Medical Plan: Refer to rheumatology. (3) Thoracic spine pain: Code(s): M54.6 - Pain in thoracic spine Category: Medical Plan: XR ordered. (4) Left shoulder pain: Code(s): M25.512 - Pain in left shoulder Category: Medical Plan: XR ordered. (5) Chest wall pain: Code(s): R07.89 - Other chest pain Category: Medical Plan: CXR and EKG ordered. Orders: Orders XR shoulder LT min 2V Today M25.512 - Pain in left shoulder XR thoracic spine 2V Today M54.6 - Pain in thoracic spine Thyroid Stimulating Hormone Today R07.89 - Other chest pain Vitamin D 25-OH Total Today E55.9 - Vitamin D deficiency, unspecified, M25.50 - Pain in unspecified joint Cyclic Citrullinated Peptide Today M25.50 - Pain in unspecified joint Erythrocyte Sedimentation Rate Today M25.50 - Pain in unspecified joint Rheumatoid Factor Today M25.50 - Pain in unspecified joint Anti DNA DS Antibody Today M25.50 - Pain in unspecified joint Influenza [id number] Immunization Today Z23 - Encounter for immunization ECG 12 lead EKG Today R07.89 - Other chest pain XR chest 2V Today R07.89 - Other chest pain Comprehensive [place]. Panel Fast Today R07.89 - Other chest pain Lipid Panel Today E78.5 - Hyperlipidemia, unspecified, R07.89 - Other chest pain Complete Blood Count Auto Diff Today D64.9 - Anemia, unspecified, R07.89 - Other chest pain MASSIEL Reflex Titer and Pattern Today M25.50 - Pain in unspecified joint Referrals Rheumatology Referral M25.50 - Pain in unspecified joint
== END 2024-02-06 17:45 | disposition home or self-care (01) ==
PROVIDERS: PCP Internal Medicine; Visit Provider Internal Medicine
DX: Z00.00 Encounter for general adult medical examination without abnormal findings (principal); M25.50 Pain in unspecified joint; M54.6 Pain in thoracic spine; M25.512 Pain in left shoulder; R07.89 Other chest pain

== ENCOUNTER → 2024-02-06 17:14 | Outpatient (BNVA) | payer OTHER, SELFPAY | PROVIDERS: PCP Internal Medicine; Visit Provider Internal Medicine | DX: Z00.01 Encounter for general adult medical examination with abnormal findings (principal); M25.50 Pain in unspecified joint; M54.6 Pain in thoracic spine; M25.512 Pain in left shoulder; R07.89 Other chest pain; Z28.21 Immunization not carried out because of patient refusal | CPT/HCPCS: 90471; 96127; 99212; 99395 ==

== ENCOUNTER 2024-02-10 09:21 | Outpatient (REF) | payer OTHER, SELFPAY ==
--- NOTE | ~2024-02-10 | XR_ITS ---
EXAMINATION: XR CHEST 2 VIEWS CLINICAL INFORMATION: Other chest pain R07.89. Patient states pain in back and shoulder. COMPARISON: XR Chest 04/08/2008 (Report only). TECHNIQUE: 2 views of the chest were obtained. FINDINGS: No significant abnormality is noted involving the heart, lungs, mediastinum, bony thorax or soft tissues. XR/XR chest 2V IMPRESSION: Unremarkable examination. Electronically signed by: Ace Matos MD 03/28/2024 01:41 PM EST
[2024-02-10 10:17] LABS: MANUAL DIFF FLAG NO
[2024-02-10 10:49] LABS: Basophils Percent Auto 0.5 % (0-2); Eosinophils Percent Auto 0.5 % (0-4); Hematocrit 42.2 % (37.0-47.0); Hemoglobin 14.2 g/dl (12.0-16.0); Imm Gran Abs Auto 0.01 X10*3/uL (0.00-0.03); Imm Gran Pct Auto 0.2 % (0.0-0.4); Mean Corpuscular HGB Conc 33.6 g/dl (31.0-35.0); Mean Corpuscular Hemoglobin 30.5 pg (27.0-33.0); Mean Corpuscular Volume 90.8 fL (80.0-98.0); Mean Platelet Volume 9.7 fL (9.4-12.3); Monocytes Absolute Auto 0.3 X10*3/uL (0.1-1.2); Monocytes Percent Auto 6.7 % (2-11); Neutrophils Absolute Auto 2.9 x10*3/uL (2.0-8.3); Neutrophils Percent Auto 68.1 % (45-73); Platelet Count 374 X10*3/uL (160-400); Red Blood Count 4.65 X10*6/uL (4.20-5.50); Red Cell Distribution Width 12.5 % (11.0-16.0); White Blood Count 4.2 X10*3/uL (4.8-10.8)
[2024-02-10 11:13] LABS: Rheumatoid Factor < 13.0 IU/mL (<15.0)
[2024-02-10 11:15] LABS: Alanine Aminotransferase 26 U/L (0-31); Albumin Level 4.7 g/dL (3.5-5.0); Alkaline Phosphatase 69 U/L (39-117); Anion Gap 11 (12-20); Aspartate Amino Transferase 25 U/L (5-31); Bilirubin Total 0.6 mg/dL (0.0-1.0); Blood Urea Nitrogen 11 mg/dL (9-16); Calcium 9.8 mg/dL (8.4-10.2); Carbon Dioxide 27 mmol/L (22-29); Chloride 108 mmol/L (96-108); Cholesterol 220 mg/dL (<200); Estimated Glomerular Filt Rate > 60; Glucose Fasting 102 mg/dL (60-99); HDL Cholesterol 57 mg/dL (>40); LDL Cholesterol Calculated 153 mg/dL (<100); Potassium 4.2 mmol/L (3.3-5.1); Sodium 142 mmol/L (135-145); Total Protein 7.8 g/dL (6.5-8.0); Triglycerides 54 mg/dL (<150)
[2024-02-10 11:43] LABS: Erythrocyte Sedimentation Rate 7 MM/HR (0-20)
[2024-02-13 20:14] LABS: Anti DNA DS Antibody 2 IU/mL
[2024-02-13 20:34] LABS: Cyclic Citrullinated Peptide <16 UNITS
[2024-02-14 13:09] LABS: Anti Nuclear Antibody Screen NEGATIVE (NEGATIVE)
== END 2024-02-10 09:22 | disposition home or self-care (01) ==
LOC: HO.XRAY 09:21
PROVIDERS: Internal Medicine; PCP Student in an Organized Health Care Education/Training Program; Visit Provider Student in an Organized Health Care Education/Training Program
DX: M25.512 Pain in left shoulder (principal); M54.6 Pain in thoracic spine; R07.89 Other chest pain; E55.9 Vitamin D deficiency, unspecified; M25.50 Pain in unspecified joint; E78.5 Hyperlipidemia, unspecified; D64.9 Anemia, unspecified
CPT/HCPCS: 36415; 71046; 72070; 73030; 80053; 80061; 82306; 84443; 85025; 85652; 86038; 86200; 86225; 86431

== ENCOUNTER 2024-02-19 07:59 | Emergency (ER) | payer OTHER, SELFPAY ==
[2024-02-19 08:03] VITALS: BP 132/85; PULSE 94; RESP 16; TEMP 36.2; O2SAT 98; BMI 30.6
[2024-02-19 08:19] VITALS: BP 124/78; PULSE 87; RESP 20; TEMP 36.8; O2SAT 98
[2024-02-19 08:32] LABS: Appearance Urine Cloudy; Color Urine Yellow; Glucose Urine UA Negative (Negative); Leukocyte Esterase Urine Large (3+) (Negative); Nitrite Urine Negative (Negative); Specific Gravity - Urine 1.015 (1.005-1.025); UMIC TRIGGER UACC YES; UPreg QC Valid YES; Urine Blood Negative (Negative); Urine Ketones Negative (Negative); Urine Pregnancy NEGATIVE (NEGATIVE); Urine Protein Negative (Neg-Trace)
[2024-02-19 08:35] LABS: Bacteria Urine 1+ (None Seen); Hyaline Casts Urine 0-2 /LPF (0-2); RBC Urine 0-2 /HPF (0-2); UACC Culture Trigger YES; WBC Urine 21-50 /HPF (0-5)
--- NOTE | 2024-02-19 08:45 | ED_ITS ---
HPI - Back Pain/Injury General Chief Complaint: Back Pain/Injury Stated Complaint: Lower back pain Time Seen by Provider: 02/19/24 08:44 Source: patient Mode of arrival: ambulatory Limitations: language barrier (Patient's 1st language is Greek, she does speak Swedish, [facility] barrel drum cutter was used) History of Present Illness ED Provider: Dr. Pardeep Jean HPI Narrative: 38-year-old female with a history of polyarthralgia, thoracic spine pain, left shoulder pain, high cholesterol, who presents emergency department for evaluation of 4 days of left-sided posterior chest/back pain which radiates to her left anterior chest. The patient does not recount any injury. She states that her pain came on gradually 4 days prior in his gotten progressively worse. She describes the pain is a constant pressure-like pain which is 9/10. This is a 1st episode of this type of pain. The pain does not get worse with movement or with breathing. She states she does feel short of breath and has some dyspnea on exertion. She denied ever lower extremities. She denied recent long trips. She was not on control pills. She did have urinary frequency but no urgency or dysuria. Related Data Previous Rx's ?Medication ?Instructions ?Recorded cholecalciferol (vitamin D3) 50 50 mcg PO DAILY 90 days #90 caps 02/12/24 mcg (2,000 unit) capsule acetaminophen 500 mg tablet 1,000 mg (2 x 500 mg) PO Q6H PRN 02/19/24 (Tylenol Extra Strength) fever or pain #20 tabs cyclobenzaprine 10 mg tablet 10 mg PO TID PRN pain, muscle 02/19/24 spasm #15 tabs ibuprofen 400 mg tablet 400 mg PO TID PRN fever or pain 02/19/24 #30 tabs Allergies Allergy/AdvReac Type Severity Reaction Status Date / Time No Known Allergies Allergy Mild NOT Verified 02/19/24 08:06 [No Known Allergies*] APPLICABLE Review of Systems Review of Systems: Yes all other systems are reviewed and are negative [facility] Past Medical History [facility] Narrative: Social history: She denies tobacco use. She occasionally drinks alcohol. She denies drug use. Medical History Obesity (BMI 30-39.9) Pure hypercholesterolemia COVID-19 vaccine series completed RUTHY I (cervical intraepithelial neoplasia I) Weight gain Surgical History No pertinent past surgical history Family History Family History Mother Hypertension Father Hypertension Diabetes Social History Social History (Updated 02/06/24 @ 17:35 by Massiel Bui MD) Household Members: Spouse and Children Housing: Apartment Alcohol intake: current Alcohol intake frequency: 0-2 drinks per day Alcohol type: beer Patient Tobacco Use Status: Never used Tobacco Smoked in Last 30 Days: No e-Cigarette/Vaping Use: Never Used Second Hand Smoke Exposure: No Use of substances other than those prescribed or required for medical reasons: No Advance Directives: No Advance Directives Information Provided: Yes Do you have a plan to hurt others: No Plan Patient : No service: No Current 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 status: 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: No Sexual orientation: Straight/Heterosexual Gender identity: Female Cognitive needs: No Hearing needs: No Vision needs: No Physical Exam Vital Signs: Vital Signs: Last Vital Signs Temp 98.3 F 02/19/24 08:49 Pulse 87 02/19/24 08:49 Resp 20 02/19/24 08:49 BP 124/78 02/19/24 08:49 Pulse Ox 98 02/19/24 08:49 O2 Del Method Room Air 02/19/24 08:49 BMI result Body Mass Index 30.6 Vital signs were normal Exam: General: Awake, alert in no distress Head: Normocephalic, atraumatic EENT: PERRL, Lids normal, sclera normal, conjunctiva normal, nose normal , ears normal, throat without erythema or exudates Neck: Supple, no adenopathy Lung: breath sounds symmetric, no wheezing, rales or rhonchi Chest: symmetric movement, tenderness palpation of the left superior lateral chest with no crepitus, no ecchymosis, no lesions noted in this area. Heart: regular rate and rhythm, normal S1, S2 no murmurs or rubs Abdomen: soft, non-tender, nondistended, normal bowel sounds Back: no vertebral tenderness, she does have tenderness palpation over the left thoracic paraspinal muscles, there is some slight spasm to these muscles. Extremities: no deformities, moves all extremities symmetrically Neuro: Awake, alert, oriented, normal speech, cranial nerves intact, moves all extremities symmetrically Psych: Pleasant, cooperative Medications Administered Discontinued Medications Generic Name Dose Route Start Last Admin Trade Name Donald PRN Reason Stop Dose Admin Ketorolac Tromethamine 60 mg 02/19/24 09:29 02/19/24 09:53 Ketorolac Tromethamine 60 Mg/2 Ml Vial IM 02/19/24 09:30 60 mg ONCE ONE Administration Medical Decision Making Medical Decision Making [facility] Narrative: 38-year-old female with a history of polyarthralgia, thoracic spine pain, left shoulder pain, high cholesterol, who presents emergency department for evaluation of 4 days of left-sided posterior chest/back pain which radiates to her left anterior chest. The pain is a constant pressure-like pain which is 9/10 at its worst, no he was not change with breathing or with movement, she does have associated urinary frequency, shortness of breath and dyspnea on exertion. Patient did not take any medications for her pain prior to coming to the emergency department. Differential diagnosis: ?Includes but is not limited to thoracic back strain, pleurisy, pneumonia, pyelonephritis, renal colic, shingles Following evaluation was ordered: Urinalysis, urine test Patient was initially treated with the following: Toradol 60 mg IM Course: My interpretation patient's laboratory evaluation is as follows: Urine test was negative. Urinalysis revealed 3+ leukocyte esterase. Microscopic revealed 0-2 RBCs, 21-50 WBCs, 11-20 squamous cells, 1+ bacteria- this is not a clean-catch specimen. Patient's pain is most likely musculoskeletal secondary to thoracic back muscle sprain. Patient's pain did improve with IM Toradol Patient will be treated with ibuprofen 400 mg 3 times a day, Tylenol 1000 mg 3 times a day and cyclobenzaprine 10 mg 3 times a day as needed for pain. The patient was given printed and verbal instructions and discharged home. Admission/Observation Consideration of admission/observation: Escalation of care including admission/observation considered (yes) Lab Data [facility] Lab Attestation statement: I reviewed the patient's lab results. Labs: Lab Results 02/19/24 Range/Units 08:23 Urine Color Yellow Urine Appearance Cloudy Urine pH 6.0 (5.0-9.0) Ur Specific [place] 1.015 (1.005-1.025) Urine Protein Negative (Neg-Trace) mg/dL Urine Glucose (UA) Negative (Negative) mg/dL Urine Ketones Negative (Negative) mg/dL Urine Blood Negative (Negative) Urine Nitrite Negative (Negative) Ur Leukocyte Esterase Large (3+) H (Negative) Urine RBC 0-2 (0-2) /HPF Urine WBC 21-50 H (0-5) /HPF Ur Squamous Epith Cells 11-20 (0-2) /HPF Urine Bacteria 1+ (None Seen) Hyaline Casts 0-2 (0-2) /LPF Urine Test NEGATIVE (NEGATIVE) Chronic Conditions Patient?s care impacted by: Other (Hyperlipidemia) Discharge Plan Discharge Clinical Impression: Thoracic back sprain Patient Disposition: Home, Self-Care Instructions: Back Pain (ED) Additional Instructions: Take ibuprofen 400 mg pills, 1 pills every 6 hours (3 times a day) for 3 days then every 6 hours as needed for pain Take Tylenol (acetaminophen) 500 mg pills, 2 pills every 6 hours as needed for pain. Take Flexeril (cyclobenzaprine) 10 mg pills, 1 pill every 6-8 hours as needed for pain or spasm. ?This medication will make you sleepy. ?Do not drive or work while taking this medication. Follow-up with your doctor in 2 days. Please return to the emergency department if your symptoms get worse or if you develop any symptoms that are concerning to you. Prescriptions: New cyclobenzaprine 10 mg tablet 10 mg PO TID PRN (Reason: pain, muscle spasm) Qty: 15 0RF acetaminophen [Tylenol Extra Strength] 500 mg tablet 1,000 mg PO Q6H PRN (Reason: fever or pain) Qty: 20 0RF ibuprofen 400 mg tablet 400 mg PO TID PRN (Reason: fever or pain) Qty: 30 0RF No Action cholecalciferol (vitamin D3) 50 mcg (2,000 unit) capsule 50 mcg PO DAILY 90 Days Qty: 90 1RF Print Language: Greek
[2024-02-19 08:49] VITALS: BP 124/78; PULSE 87; RESP 20; TEMP 36.8; O2SAT 98
--- NOTE | 2024-02-19 08:54 | PC.NURSE ---
Pt comes to ED for c/o L flank 01/25 pain x4 days. VSS, A&OX3, afebrile. Pt denies any falls or injuries and denies any history of this type of pain before. C/o dizziness on 02/17/24--no other symptoms or complaints. U/A completed. Awaiting ED provider.
[2024-02-19] MEDS: Ketorolac Tromethamine 60 MG/2 ML VIAL IM (09:53)
[2024-02-19 11:15] VITALS: BP 128/79; PULSE 83; RESP 20; TEMP 36.9; O2SAT 100
[2024-02-19 11:38] VITALS: BP 128/79; PULSE 83; RESP 20; TEMP 36.9; O2SAT 100
== END 2024-02-19 11:38 | disposition home or self-care (01) ==
PROVIDERS: Emergency Provider Emergency Medicine Emergency Medical Services; PCP Internal Medicine
DX: M54.6 Pain in thoracic spine (principal); R07.89 Other chest pain; Z79.899 Other long term (current) drug therapy
CPT/HCPCS: 81001; 81025; 87086; 96372; 99284; J1885

== ENCOUNTER 2024-05-23 10:42 | Outpatient (REF) | payer OTHER, SELFPAY ==
--- OUTSIDE RECORDS SUMMARY | 2024-05-23 14:01 | XMS_ITS | Clinical Summary ---
[facility] Organization [facility] Address [address] [place] [address] Care Team Providers Care Tennis Desk Team Member Name Role Phone Unavailable Primary Care Provider Unavailabl e Social History Tobacco Use Types Packs/Day Years Used Date Smoking Tobacco: Never Assessed Sex and Gender Information Value Date Recorded Sex Assigned at Not on file Gender Identity Not on file Sexual Orientation Not on file Plan of Treatment Health Maintenance Due Date Last Done Comments DTaP,Tdap,and Td Vaccines (1 - Tdap) 2004 Hepatitis B Vaccines (1 of 3 - 19+ 3-dose series) 2004 Cervical Cancer Screening: P ap Smear 2006 COVID-19 Vaccine (2023-2 5 season) 2023 Influenza Vaccine (#1) 2023 HIB Vaccines Aged Out No longer eligi ble based on patient's age to complete this topic HPV Vaccines Aged Out No longer eligi ble based on patient's age to complete this topic Hepatitis A Vaccines Aged Out No long er eligible based on patient's age to complete this topic IPV Vaccines Aged Out No longer eligi ble based on patient's age to complete this topic MMR Vaccines Aged Out No longer eligi ble based on patient's age to complete this topic Meningococcal ACWY Vaccine Aged Out N o longer eligible based on patient's age to complete this topic Pneumococcal Vaccine: Pediat rics (0 to 5 Years) and At-Risk Patients (6 to 64 Years) Aged Out No longer eligible b ased on patient's age to complete this topic RSV Immunization Patients Un christina 20 months Aged Out No longer eligible b ased on patient's age to complete this topic Varicella Vaccines Aged Out No longer eligible based on patient's age to complete this topic
[2024-05-23 18:49] LABS: Alanine Aminotransferase 16 U/L (0-31); Aspartate Amino Transferase 23 U/L (5-31); Estimated Glomerular Filt Rate > 60
== END 2024-05-23 10:43 | disposition home or self-care (01) ==
LOC: HO.HKASLDS 10:42
PROVIDERS: PCP Internal Medicine; Visit Provider Internal Medicine Rheumatology
DX: M79.631 Pain in right forearm (principal); M25.561 Pain in right knee; M25.562 Pain in left knee; G89.29 Other chronic pain
CPT/HCPCS: 36415; 82565; 84450; 84460; 99202

== ENCOUNTER 2024-07-19 14:34 | Outpatient (REF) | payer OTHER, SELFPAY ==
--- NOTE | ~2024-07-19 | XR_ITS ---
CLINICAL HISTORY: M25.569 - Pain in unspecified knee 3 view bilateral knee Comparison: None Findings: Bones intact. No dislocations. No significant loss of joint space, osteophytes, or erosions. No joint effusion. No radiopaque foreign body. IMPRESSION: 1. No acute findings. This document has been electronically signed by: Hamilton Mcwilliams MD on 07/21/2024 07:52:58
--- OUTSIDE RECORDS SUMMARY | 2024-07-19 16:06 | XMS_ITS | Clinical Summary ---
Author Organization [facility] Address [address] [place] [address] Care Team Providers Care Weigher And Grader Name Role Phone Unavailable Primary Care Provider Unavailabl e Social History Tobacco Use Types Packs/Day Years Used Date Smoking Tobacco: Never Assessed Comments Unknown Sex and Gender Information Value Date Recorded Sex Assigned at Not on file Legal Sex Female 9:26 AM EST Gender Identity Not on file Sexual Orientation Not on file Plan of Treatment Health Maintenance Due Date Last Done Comments DTaP,Tdap,and Td Vaccines (1 - Tdap) 2004 Hepatitis B Vaccines (1 of 3 - 19+ 3-dose series) 2004 Cervical Cancer Screening: P ap Smear 2006 COVID-19 Vaccine ( - 2023-2 5 season) 2023 Influenza Vaccine (#1) 2023 [...] patient's age to complete this topic Meningococcal B Vacine Aged Out No lo nger eligible based on patient's age to complete [...]
== END 2024-07-19 14:35 | disposition home or self-care (01) ==
LOC: HO.XRAY 14:34
PROVIDERS: PCP Internal Medicine; Visit Provider Internal Medicine Rheumatology
DX: M25.561 Pain in right knee (principal); M25.562 Pain in left knee; G89.29 Other chronic pain
CPT/HCPCS: 73560

== ENCOUNTER → 2024-07-19 14:38 | Outpatient (BNV) | payer OTHER, SELFPAY | PROVIDERS: PCP Internal Medicine; Visit Provider Specialist | DX: M25.569 Pain in unspecified knee (principal) | CPT/HCPCS: 73560 ==

== ENCOUNTER 2024-07-23 16:42 | Outpatient (AMB) | payer OTHER, SELFPAY ==
[2024-07-23 16:44] VITALS: BP 126/82; BMI 31.2
--- NOTE | 2024-07-23 16:44 | A.OFFPC_ITS ---
Vital Signs 07/23/24 16:44 Height 5 ft 4 in Weight 182 lb BMI 31.2 BP 126/82 Blood Pressure Location Lt brachial Position Sitting Intake Visit Reasons: polyarthralgia Ultrasonic Hand Solderer Required: No Accompanied by: Self / Same As Patient Allergies No Known Allergies [No Known Allergies*] Allergy (Mild, Verified 07/23/24 16:54) NOT APPLICABLE Medication List - Last Reconciled 07/23/24 by Massiel Bui MD acetaminophen (Tylenol Extra Strength) 1,000 mg (2 x 500 mg) PO Q6H PRN cholecalciferol (vitamin D3) 50 mcg PO DAILY 90 days cyclobenzaprine 10 mg PO TID PRN ibuprofen 400 mg PO TID PRN meloxicam 15 mg PO DAILY Tobacco use date assessed: 07/23/24 Dental Screening Dental Screen Date: 07/23/24 Did you have a dental visit in the last 12 months?: Yes Did you have a dental problem in the last 6 months where you did not have access to dental care?: No Was dental information given to patient?: Patient has dentist HPI HPI Comments History of Present Illness Details The patient is a 38-year-old female presenting with joint pain. She reports persistent pain in her right knee, which is monitored by her bench loom weaver, with upcoming follow-up planned. Imaging shows no issues such as dislocation or arthritis, but the knee pain continues to be symptomatic. Medication management includes ibuprofen and meloxicam, to which she has no adverse reactions. Further treatment from an orthopedist has been recommended given the persisting symptoms, although she has not yet seen one. Additionally, there is a focus on managing her Vitamin D deficiency, although details of management and specific levels were not discussed. [facility] Medical History (Updated 07/23/24 @ 19:07 by Massiel Bui MD) Obesity (BMI 30-39.9) Pure hypercholesterolemia COVID-19 vaccine series completed RUTHY I (cervical intraepithelial neoplasia I) Weight gain Surgical History No pertinent past surgical history Family History Mother Hypertension Father Hypertension Diabetes Social History Household Members: Spouse and Children Housing: Apartment Alcohol intake: current Alcohol intake frequency: 0-2 drinks per day Alcohol type: beer Patient Tobacco Use Status: Never used Tobacco e-Cigarette/Vaping Use: Never Used Second Hand Smoke Exposure: No service: No Current 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 status: 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 1. Little interest or pleasure in doing things: not at all 2. Feeling down, depressed, or hopeless: not at all 3. Trouble falling or staying asleep, or sleeping too much: not at all 4. Feeling tired or having little energy: not at all 5. Poor appetite or overeating: not at all 6. Feeling bad about yourself - or that you are a failure or have let yourself or your family down: not at all 7. Trouble concentrating on things, such as reading the newspaper or watching te levision: not at all 8. Moving or speaking so slowly that other people could have noticed. Or the opposite - being so fidgety or restless that you have been moving around a lot more than usual: not at all 9. Thoughts that you would be better off or of hurting yourself in some way: not at all Total score: 0 Depression Screening Interpretation: Negative Depression Screening Done: Yes [id number] - PHQ-9 Billing: Yes Source: Developed by Drs. Jacoby Sheppard, Marci Dangelo, Luis Alberto Moraes and colleagues, with an educational melecio from [employer]. Thrive Questionnaire Date Thrive assessed: 07/23/24 I am a: Patient What is your living situation today?: I have a steady place to live Within the past 12 months, did the food you bought not last and you didn't have the money to get more?: Never true Within the past 12 months, did you worry whether your food would run out before you got money to buy more?: Never true Do you have trouble paying for medicines?: No Do you have trouble getting transportation to medical appointments?: No Do you have trouble paying your heating and electricity bill?: No Do you have trouble taking care of your child, family member or friend?: No Do you have trouble with day-to-day activities such as bathing, preparing meals, shopping, managing finances, etc.?: No Are you currently unemployed and looking for a job?: No Are you interested in more education?: No Please select the resources that you would like help with: None Currently or been in a relationship where the following occur: No concerns reported THRIVE Score: 0 AUDIT C Alcohol Use Questionnaire (AUDIT-C) 1. How often do you have a drink containing alcohol?: 2-4 times a month 2. How many drinks containing alcohol do you have on a typical day when you are drinking?: 1 or 2 3. How often do you have six or more drinks on one occasion?: Never Total Score: 2 Score Reviewed/Action Taken: No FARZAD-7 AMB Questionnaire FARZAD-7 Date FARZAD - 7 assessed: 07/23/24 Feeling nervous, anxious, or on edge: 0 = Not at all Not being able to stop or control worryin = Not at all Worrying too much about different things: 0 = Not at all Trouble relaxin = Not at all Being so restless that it is hard to sit still: 0 = Not at all Becoming easily annoyed or irritable: 0 = Not at all Feeling afraid as if something awful might happen: 0 = Not at all Total FARZDA-7 score (0-4 normal; 5-9 mild; 10-14 moderate; 15-21 severe): 0 Source: Developed by Drs. Jacoby Sheppard, Marci Dangelo, Luis Alberto Moraes and colleagues, with an educational melecio from [employer]. FARZAD-7 Assessment Billing FARZAD-7 Assessment Tool: FARZAD-7 Assessment 50948 Review of Systems Const All systems reviewed & are unremarkable except as noted in HPI and below Card Denies chest pain at rest, Denies chest pain with activity, Denies edema, Denies irregular heart rhythm, Denies claudication, Denies dyspnea, Denies dyspnea on exertion, Denies orthopnea, Denies paroxysmal nocturnal dyspnea and Denies slow heart rate Resp Denies cough, Denies dyspnea and Denies dyspnea on exertion Musc Reports arthralgias Neuro Denies lack of coordination Physical exam (Primary Care) Vital Signs: Last Vital Signs BP 126/82 07/23/24 16:44 BMI result Body Mass Index 31.2 Tobacco/Smoking Status: Tobacco use Status Tobacco use date assessed 07/23/24 07/23/24 16:49 Patient Tobacco Use Status Never used Tobacco 07/23/24 16:49 e-Cigarette/Vaping Use Never Used 07/23/24 16:49 PHQ-9: PHQ-9 Score PHQ-9: Total score 0 07/23/24 16:55 Depression Screening Interpretation: Negative Thrive Assessment: Date of Thrive Assessment Date Thrive assessed 07/23/24 07/23/24 16:49 Currently or been in a relationship where the following occur: No concerns reported Resp Effort & Inspection: normal respiratory effort Auscultation: clear to auscultation bilaterally Cardio Jugular venous distension: no JVD Rate: regular rate Rhythm: regular rhythm Heart sounds: S1 normal heart sound present and S2 normal heart sound present Extrem General: Yes full ROM Coding Level of Care Code Est Pt Level 3 (00291) Complex EM visit Add On G2211 Diagnoses Chronic pain of both knees M25.561; M25.562; G89.29 Laterality: bilateral Polyarthralgia M25.50 Hypovitaminosis D E55.9 Additional Codes FARZAD-7 Assessment Billing - FARZAD-7 Assessment Tool: FARZAD-7 Assessment 54205 ([id number]) PHQ-9 - 18183 - PHQ-9 Billing: Yes ([id number]) Time Spent (min) 19 Assessment & Plan Assessment & Plan (1) Chronic knee pain: Comment: Right knee is worse than left. She has right hamstring strain contributing to her pain. We discussed conservative management. Code(s): M25.569 - Pain in unspecified knee; G89.29 - Other chronic pain Category: Medical Qualifiers: Laterality: bilateral Qualified Code(s): M25.561 - Pain in right knee; M25.562 - Pain in left knee; G89.29 - Other chronic pain (2) Polyarthralgia: Code(s): M25.50 - Pain in unspecified joint Category: Medical (3) Hypovitaminosis D: Code(s): E55.9 - Vitamin D deficiency, unspecified Category: Medical Plan The plan includes referring the patient to an orthopedist for her ongoing joint pain for specialized assessment and management. Ensuring continuity of care with rheumatology is crucial to evaluate current management strategies and consider medication adjustments if necessary. Managing vitamin D deficiency is also a priority, aiming to optimize vitamin intake and monitor improvement in subsequent visits. Collaboration with specialists will ensure the patient receives holistic care. Patient was informed and verbally consented to the use of an ambient scribe for clinic note documentation during this visit. I discussed with the patient the need for an orthopedist referral for her right knee pain, providing insights into further evaluations and management possibilities. I emphasized the importance of her follow-up with the bench loom weaver to reassess her current condition, reiterating the potential need for adjustments in the medication used, such as ibuprofen or meloxicam, depending on her symptoms. We reviewed her current lack of allergies and the role of optimal Vitamin D levels, mentioning their planned assessment in the upcoming rheumatology visit to gauge improvements and adjust supplementation if needed. Orders: Referrals Orthopedics Referral G89.29 - Other chronic pain, M25.561 - Pain in right knee, M25.562 - Pain in left knee Patient Instructions: - Follow up with the orthopedist when they contact you for your right knee evaluation. - Continue current medication regimen with ibuprofen and meloxicam as advised by your bench loom weaver. - Attend your scheduled rheumatology appointment next month. - Maintain or adjust Vitamin D supplementation as discussed and reassess levels during the next visit. - Contact healthcare provider if there are any new symptoms or worsening of current conditions.
--- OUTSIDE RECORDS SUMMARY | 2024-07-23 18:46 | XMS_ITS | Clinical Summary ---
Author Organization [facility] [employer] [facility] ity Address [address] [place] [address] Care Team Providers Care Marketing Technologist Name Role Phone Unavailable Primary Care Provider [...] age to complete this topic Meningococcal B Vaccine Aged Out No l onger eligible based on patient's age to complete [...]
== END 2024-07-23 17:01 | disposition home or self-care (01) ==
LOC: HO.HMCH 16:43
PROVIDERS: PCP Internal Medicine; Visit Provider Internal Medicine
DX: M25.561 Pain in right knee (principal); M25.562 Pain in left knee; G89.29 Other chronic pain; M25.50 Pain in unspecified joint; E55.9 Vitamin D deficiency, unspecified

== ENCOUNTER → 2024-07-23 16:42 | Outpatient (BNVA) | payer OTHER, SELFPAY | PROVIDERS: PCP Internal Medicine; Visit Provider Internal Medicine | DX: M25.561 Pain in right knee (principal); M25.562 Pain in left knee; G89.29 Other chronic pain; M25.50 Pain in unspecified joint; E55.9 Vitamin D deficiency, unspecified | CPT/HCPCS: 96127; 99212 ==

== ENCOUNTER 2024-08-22 10:37 | Outpatient (AMB) | payer OTHER, SELFPAY ==
--- NOTE | 2024-08-22 10:45 | A.OFFVIS_ITS ---
Vital Signs 08/22/24 10:46 Height 5 ft 4 in Weight 179 lb 0.246 oz BMI 30.7 BP 140/90 H Blood Pressure Location Lt brachial Position Sitting Pulse 80 Pulse Source Pulse Oximeter Pulse Oximetry (%) 98 Oxygen Delivery Method Room Air Intake Visit Reasons: 3 Months Intake Note: Patient presents for joint pain. Machine Hoop Maker Required: No Accompanied by: Self / Same As Patient Allergies meloxicam Allergy (Intermediate, Uncoded 08/22/24 13:06) palpations HPI HPI 3 Months: Details: Meloxicam caused palitations and made her feel tired. She did not receive a call to schedule physical therapy. She has been icing knee. Pain in knees have not changed. [facility] Medical History Obesity (BMI 30-39.9) Pure hypercholesterolemia COVID-19 vaccine series completed RUTHY I (cervical intraepithelial neoplasia I) Weight gain Surgical History No pertinent past surgical history Family History Mother Hypertension Father Hypertension Diabetes Social History Household Members: Spouse and Children Housing: Apartment Alcohol intake: current Alcohol intake frequency: 0-2 drinks per day Alcohol type: beer Patient Tobacco Use Status: Never used Tobacco e-Cigarette/Vaping Use: Never Used Second Hand Smoke Exposure: No service: No Current 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 status: 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 No tenderness along joint line of knees. No joint effusion present. Good range of motion of lower extremities. Assessment & Plan Assessment & Plan (1) Chronic knee pain: Comment: Right knee is worse than left. She has right hamstring strain contributing to her pain. X-ray knee was unremarkable. She had adverse reaction on meloxicam. We discussed conservative management. Code(s): M25.569 - Pain in unspecified knee; G89.29 - Other chronic pain Category: Medical Qualifiers: Laterality: bilateral Qualified Code(s): M25.561 - Pain in right knee; M25.562 - Pain in left knee; G89.29 - Other chronic pain Plan: Ice knee twice a day PT ordered for knee strengthening Encouraged weight loss She can use ibuprofen+/-Tylenol as needed for pain control Return to clinic in 3 months (2) Right hamstring muscle strain: Code(s): S76.311A - Strain of muscle, fascia and tendon of the posterior muscle group at thigh level, right thigh, initial encounter Category: Medical Qualifiers: Encounter type: initial encounter Qualified Code(s): S76.311A - Strain of muscle, fascia and tendon of the posterior muscle group at thigh level, right thigh, initial encounter Plan: See above Medications: Discontinued meloxicam Take with food Discontinued Reason: Doctor's Order 15 mg PO DAILY 30 tabs 2RF Coding Level of Care Code Est Pt Level 3 (22790) Complex EM visit Add On G2211 Diagnoses Chronic pain of both knees M25.561; M25.562; G89.29 Laterality: bilateral Strain of right hamstring muscle, initial encounter S76.311A Encounter type: initial encounter
[2024-08-22 10:46] VITALS: BP 140/90; PULSE 80; O2SAT 98; BMI 30.7
--- OUTSIDE RECORDS SUMMARY | 2024-08-22 11:55 | XMS_ITS | Clinical Summary ---
Author Organization [facility] [employer] [facility] ity Address [address] [place] [address] Care Team Providers Care Enforcement Safety Officer Name Role Phone Unavailable Primary Care Provider [...] - 2023-2 5 season) 2023 Influenza Vaccine (Season Ended) 2024 HIB Vaccines Aged Out No longer eligi [...]
== END 2024-08-22 11:35 | disposition home or self-care (01) ==
LOC: HO.RHES 10:38
PROVIDERS: PCP Internal Medicine; Visit Provider Internal Medicine Rheumatology
DX: M25.561 Pain in right knee (principal); M25.562 Pain in left knee; G89.29 Other chronic pain; S76.311A Strain of muscle, fascia and tendon of the posterior muscle group at thigh level, right thigh, initial encounter
CPT/HCPCS: 99213; G2211

== ENCOUNTER → 2024-08-22 10:37 | Outpatient (BNVA) | payer OTHER, SELFPAY | PROVIDERS: PCP Internal Medicine; Visit Provider Internal Medicine Rheumatology | DX: S76.311D Strain of muscle, fascia and tendon of the posterior muscle group at thigh level, right thigh, subsequent encounter (principal); M25.561 Pain in right knee; M25.562 Pain in left knee; G89.29 Other chronic pain | CPT/HCPCS: 99212 ==

== ENCOUNTER 2024-09-14 08:40 | Outpatient (REF) | payer OTHER, SELFPAY ==
--- OUTSIDE RECORDS SUMMARY | 2024-09-17 09:00 | XMS_ITS | Clinical Summary ---
Author Organization [facility] [employer] [facility] ity Address [address] [place] [address] Care Team Providers Care Gang Mower Operator Name Role Phone Unavailable Primary Care Provider [...]
== END 2024-09-14 08:41 | disposition home or self-care (01) ==
LOC: HO.HOSX 08:40
PROVIDERS: Visit Provider Physician Assistant
DX: Z13.89 Encounter for screening for other disorder (principal)

== ENCOUNTER 2024-12-18 07:22 | Outpatient (REF) | payer OTHER, SELFPAY | END 2024-12-18 07:23 | disposition home or self-care (01) | LOC: HO.LNP 07:22 | PROVIDERS: PCP Internal Medicine; Visit Provider Obstetrics & Gynecology | DX: Z01.419 Encounter for gynecological examination (general) (routine) without abnormal findings (principal) | CPT/HCPCS: 87626; 88175; 99395 ==

== ENCOUNTER 2024-12-18 07:22 | Outpatient (AMB) | payer OTHER, SELFPAY ==
--- OUTSIDE RECORDS SUMMARY | 2024-12-18 07:24 | XMS_ITS | Clinical Summary ---
Author Organization [facility] Address [address] [place] [address] Care Team Providers Care Brickmason Apprentice Name Role Phone Unavailable Primary Care Provider [...] Vaccine ( - 2023-2 5 season) 2023 Depression Screening 04/18/2024 Influenza Vaccine (#1) 2024 HIB Vaccines Aged Out No longer [...] 5 Years) and At-Risk Patients (6 to 49 Years) Aged Out No longer eligible b ased on patient's age to complete this topic RSV Immunization Patients Un christina 20 months Aged Out No longer eligible b ased on patient's age to complete this topic Varicella Vaccines Aged Out No longer eligible based on patient's age to complete this topic
--- NOTE | 2024-12-18 07:36 | A.OFFVIS_ITS ---
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 No complaints. Last Pap/HPV was negative in 10/06 [facility] Medical History Obesity (BMI 30-39.9) Pure hypercholesterolemia COVID-19 vaccine series completed RUTHY I (cervical intraepithelial neoplasia I) Weight gain Surgical History No pertinent past surgical history Family History Mother Hypertension Father Hypertension Diabetes Social History Household Members: Spouse and Children Housing: Apartment Alcohol intake: current Alcohol intake frequency: 0-2 drinks per day Alcohol type: beer Patient Tobacco Use Status: Never used Tobacco e-Cigarette/Vaping Use: Never Used Second Hand Smoke Exposure: No service: No Current 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 status: 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: No Sexual orientation: Straight/Heterosexual Gender identity: Female Cognitive needs: No Hearing needs: No Vision needs: No Female Reproductive History Menstrual Age of Menarche: 10 Date of last menstrual period: 12/09/24 control method: none Total pregnancies: 4 Full term: 4 Number of Living Children: 4 Date of last pap smear: 09/23/20 (neg pap and hpv) History of abnormal pap smear: Yes (2019 cin1) Review of Systems Const All systems reviewed & are unremarkable except as noted in HPI and below Card Reports as per HPI Resp Reports as per HPI GI Reports as per HPI and Reports no additional complaints Reports as per HPI Physical Exam Vital Signs: Last Vital Signs BP 120/72 12/18/24 07:37 BMI result Body Mass Index 30.9 Const General: cooperative, healthy appearing and comfortable Chest Chest palpation & inspection: normal inspection of the chest and normal palpation of entire chest wall Breast/axilla inspection: normal inspection of the breasts and normal inspection of the axillae Breast/axilla palpation: normal palpation of the breasts, normal palpation of the axillae and no axillary lymphadenopathy Resp Effort & Inspection: normal respiratory effort Auscultation: clear to auscultation bilaterally Percussion: percussion normal Cardio Palpation: normal PMI Rate: regular rate Rhythm: regular rhythm Heart sounds: no murmurs and no rubs Peripheral pulses: Peripheral pulses 2+ throughout GI Inspection: Yes normal to inspection Palpation (GI): Soft to palpation, nontender, no guarding, not rigid and No hepatosplenomegaly present Percussion: Yes normal to percussion Auscultation: normal bowel sounds Rectal Exam - Female: deferred General: Yes bladder normal to palpation External Female Exam: No lesion Speculum Exam - Vagina: normal appearance of the vagina, normal palpation, normal vaginal discharge and not erythematous Speculum Exam - Cervix: normal appearance of the cervix and normal palpation Bimanual exam- vagina & uterus: normal bimanual exam, normal palpation, uterine size normal, bladder normal to palpation, consistency normal and normal palpation Bimanual Exam- Adnexa, other: normal adnexae, no masses and no tenderness Assessment & Plan Assessment & Plan (1) Well woman exam: Comment: RUTHY 1 in 2019 in 2020 followed by negative co testing in 2020 Code(s): Z01.419 - Encounter for gynecological examination (general) (routine) without abnormal findings Category: Medical Plan: Cotesting done. Counseled the patient about the recommended dietary allowance of 1000 mg of Calcium & 600 IU of vitamin D. The patient was instructed to perform monthly self-breast exams and to schedule an annual exam in a year; All questions answered and the patient verbalized understanding. Instructed the patient to schedule annual exam in a year Coding Level of Care Code Est Pt Prev Care 18-39y(43417) Diagnoses Well woman exam Z01.419
[2024-12-18 07:37] VITALS: BP 120/72; BMI 30.9
== END 2024-12-18 07:55 | disposition home or self-care (01) ==
LOC: HO.HWS 07:22
PROVIDERS: PCP Internal Medicine; Visit Provider Obstetrics & Gynecology
DX: Z01.419 Encounter for gynecological examination (general) (routine) without abnormal findings (principal)
CPT/HCPCS: 99395; 99459

== ENCOUNTER 2025-01-03 05:21 | Emergency (ER) | payer OTHER, SELFPAY ==
--- NOTE | ~2025-01-03 | XR_ITS ---
CLINICAL HISTORY: SOB 1 view chest x-ray. Comparison: 02/10/2024 09:42 AM EDT: CR Findings: The lungs are adequately expanded. No focal consolidation. No effusion or pneumothorax. Cardiac and mediastinal contours are within normal limits. No acute osseous abnormality Impression: No acute process. This document has been electronically signed by: Chilo Brown MD on 01/03/2025 07:43:48
--- NOTE | 2025-01-03 05:23 | ECG_ITS ---
Test Reason : CP Blood Pressure : */* mmHG Vent. Rate : 99 BPM Atrial Rate : 99 BPM P-R Int : 160 ms QRS Dur : 70 ms QT Int : 360 ms P-R-T Axes : -28 -11 -10 degrees QTcB Int : 462 ms Normal sinus rhythm Normal ECG When compared with ECG of 06-Oct-2022 21:52, No significant change was found Referred By: Generic ED Physician Electronically Signed By: MANI GARCIA
[2025-01-03 05:32] VITALS: BP 175/83; PULSE 102; RESP 16; TEMP 36.7; O2SAT 99; BMI 31.8
--- NOTE | 2025-01-03 05:43 | ED.CHESTPAIN ---
HPI - Chest Pain General Chief Complaint: Chest Pain Stated Complaint: CHEST DISCOMFORT + LEFT ARM Time Seen by Provider: 01/03/25 05:43 History of Present Illness ED Provider: Dee RAY narrative: The patient is a 39-year-old female who does not seem to have any significant past medical history. She is a nonsmoker. She is on no medications. She is not on control. She says that she developed pain in her left anterior upper chest yesterday evening at around 6PM. She says that the pain started before the evening meal. The pain has persisted throughout the night and she ultimately came to the emergency room for evaluation. There has been no associated fever, sweats, chills. No associated sore throat. No associated cough or sputum. No associated abdominal pain, nausea, vomiting. No associated pain or swelling in her legs. She denies any trauma. The pain is positional. It is worse with sitting up. Related Data Previous Rx's ?Medication ?Instructions ?Recorded cholecalciferol (vitamin D3) 50 50 mcg PO DAILY 90 days #90 caps 02/12/24 mcg (2,000 unit) capsule acetaminophen 500 mg tablet 1,000 mg (2 x 500 mg) PO Q6H PRN 02/19/24 (Tylenol Extra Strength) fever or pain #20 tabs cyclobenzaprine 10 mg tablet 10 mg PO TID PRN pain, muscle 02/19/24 spasm #15 tabs ibuprofen 400 mg tablet 400 mg PO TID PRN fever or pain 02/19/24 #30 tabs acetaminophen 500 mg capsule 1,000 mg (2 x 500 mg) PO Q8H PRN 01/03/25 fever or pain #14 caps ibuprofen 400 mg tablet 400 mg PO Q6H PRN pain #14 tabs 01/03/25 lidocaine 5 % topical patch 1 patch topical DAILY PRN chest 01/03/25 wall pain #15 ea Allergies Allergy/AdvReac Type Severity Reaction Status Date / Time meloxicam Allergy Intermediate palpations Uncoded 01/03/25 05:32 Review of Systems Review of Systems: Yes all other systems are reviewed and are negative [facility] Past Medical History Medical History Obesity (BMI 30-39.9) Pure hypercholesterolemia COVID-19 vaccine series completed RUTHY I (cervical intraepithelial neoplasia I) Weight gain Surgical History No pertinent past surgical history Family History Family History Mother Hypertension Father Hypertension Diabetes Social History Social History Household Members: Spouse and Children Housing: Apartment Alcohol intake: current Alcohol intake frequency: holidays/special occasions only Alcohol type: beer Patient Tobacco Use Status: Never used Tobacco Smoked in Last 30 Days: No e-Cigarette/Vaping Use: Never Used Second Hand Smoke Exposure: No Use of substances other than those prescribed or required for medical reasons: No Advance Directives: No Advance Directives Information Provided: Yes Patient : No service: No Current 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 status: 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 She does not appear in overt distress. Orientation/consciousness: patient oriented x3 HEENT: Other: The face is symmetrical. ?Mucous membranes moist. Eyes: Other: Pupils are round equal, conjunctivae are clear, extraocular movements intact Neck: Neck: Yes normal visual inspection, Yes full ROM, Yes no lymphadenopathy and Yes no JVD Chest: Other: The patient seems to be tender in the left upper chest wall near the upper left parasternal border. Resp: Effort & Inspection: normal respiratory effort Auscultation: clear to auscultation bilaterally Cardio: Rate: regular rate Rhythm: regular rhythm Heart sounds: S1 normal heart sound present and S2 normal heart sound present GI: Other: Abdomen is soft and nontender. No right upper quadrant tenderness. No Mckee's sign. Skin: Other: The skin is dry and unremarkable Neuro: General: patient oriented x3, tone normal, moves all extremities, no focal motor deficits and CN's II-XI intact bilaterally Extrem: Other: There is no calf swelling or tenderness. No asymmetry. No peripheral edema. Medications Administered Discontinued Medications Generic Name Dose Route Start Last Admin Trade Name Donald PRN Reason Stop Dose Admin Acetaminophen 975 mg 01/03/25 06:04 01/03/25 06:09 Acetaminophen 325 Mg Tablet PO 01/03/25 06:05 975 mg ONCE ONE Administration Ketorolac Tromethamine 15 mg 01/03/25 06:04 01/03/25 06:09 Ketorolac Tromethamine 15 Mg/Ml Vial IVPUSH 01/03/25 06:05 15 mg ONCE ONE Administration Lidocaine 1 patch 01/03/25 06:35 01/03/25 06:42 Lidocaine 4 % Patch Adh..Patch TRANSDERMA 01/03/25 06:36 1 patch ONCE ONE Administration Protocol Medical Decision Making Medical Decision Making [facility] Narrative: The patient presents for evaluation of left upper anterior chest pain. I feel she has reproducible chest pain with palpation of this area of the chest. She does not seem to have significant risk factors for coronary artery disease or pulmonary embolism. My suspicion for an acute coronary syndrome or a pulmonary embolism is very low. She will be given a dose of ketorolac and acetaminophen. The patient has a an EKG which I feel is normal and similar to previous EKGs. She has a chest x-ray that I think is normal. She has a troponin which is undetectable. Since the patient presents almost 12 hours from the onset of symptoms and since the symptoms has been quite constant I do not think a 2nd troponin is necessary. The patient has a a D-dimer which is less than 150. I do not think she has a pulmonary embolism. She has a CBC with a WBC of 6.6 and a normal differential. She is not anemic. Liver function tests are normal. test is negative. I feel this is essentially a negative workup for any acutely dangerous cause of chest pain. I re-evaluated the patient and was quite surprised that she said she had gotten no relief from IV Toradol. She looked entirely well and she did not appear uncomfortable. At that point we added a lidocaine patch applied to her chest wall. Although she said she did not feel any better my suspicion for a dangerous process remains extremely low and I think she may be discharged with prescriptions for lidocaine patches as well as ibuprofen and acetaminophen. She should follow up with her primary care doctor. Return to the ER if worse. Lab Data 01/03/25 05:44 01/03/25 05:44 Labs: Lab Results 01/03/25 Range/Units 05:44 WBC 6.6 (4.8-10.8) X10*3/uL RBC 4.65 (4.20-5.50) X10*6/uL Hgb 13.9 (12.0-16.0) g/dl Hct 40.4 (37.0-47.0) % MCV 86.9 (80.0-98.0) fL MCH 29.9 (27.0-33.0) pg MCHC 34.4 (31.0-35.0) g/dl RDW 12.4 (11.0-16.0) % Plt Count 356 (160-400) X10*3/uL MPV 9.5 (9.4-12.3) fL Immature Gran % (Auto) 0.2 (0.0-0.4) % Neut % (Auto) 65.7 (45-73) % Lymph % (Auto) 25.3 (20-40) % [place] % (Auto) 7.3 (2-11) % Eos % (Auto) 0.9 (0-4) % Baso % (Auto) 0.6 (0-2) % Lymph # (Auto) 1.7 (1.2-4.9) X10*3/uL [place] # (Auto) 0.5 (0.1-1.2) X10*3/uL Eos # (Auto) 0.1 (0.0-0.4) X10*3/uL Baso # (Auto) 0.0 (0.0-0.2) X10*3/uL Abs Immat Gran (auto) 0.01 (0.00-0.03) X10*3/uL Absolute Neuts (auto) 4.3 (2.0-8.3) x10*3/uL Absolute Nucleated RBC 0.000 (0.0-0.012) X10*3/uL Nucleated RBC % (auto) 0.0 (0.0-0.2) /100WBC PT 11.8 (10.9-12.4) SEC INR 1.0 (0.9-1.1) D-Dimer High Sensitivty < 150 NG/ML Sodium 141 (135-145) mmol/L Potassium 3.9 (3.3-5.1) mmol/L Chloride 110 H (96-108) mmol/L Carbon Dioxide 23 (22-29) mmol/L Anion Gap 12 (12-20) BUN 11 (9-16) mg/dL Creatinine 0.73 (0.5-1.4) mg/dL Estim Creat Clear Calc 108.4 Estimated GFR > 60 Random Glucose 107 (60-115) mg/dL Calcium 9.4 (8.4-10.2) mg/dL Total Bilirubin 0.3 (0.0-1.0) mg/dL AST 25 (5-31) U/L ALT 25 (0-31) U/L Alkaline Phosphatase 75 (39-117) U/L Troponin I High Sens < 2.7 (<3.5-17.0) ng/L Total Protein 7.4 (6.5-8.0) g/dL Albumin 4.5 (3.5-5.0) g/dL Beta HCG, Quant < 2 mIU/mL Independent Interpretation I performed an independent interpretation of an: EKG Interpretation: EKG at 05:28 shows normal sinus rhythm at 99 beats per minute. No acute ischemic changes. The EKG looks like a normal EKG. It is similar to her previous EKG. Discharge Plan Discharge Clinical Impression: Acute chest wall pain Patient Disposition: Home, Self-Care Additional Instructions: Your testing in the emergency room today is very reassuring. I think the pain in your chest is coming from your chest wall. You has been given a patch of pain medication to your left chest wall which I hope will help you today. Please leave this patch on for 12 hours and then remove it. I have sent a prescription for additional patches to your pharmacy. You may apply another patch 12 hours after you took off the last patch. Therefore you may apply another patch tomorrow morning. You may continue to do this as needed for the next several days. In addition you may use the ibuprofen and acetaminophen prescribed as needed as well. Please plan on following up with your regular doctor. Prescriptions: New ibuprofen 400 mg tablet 400 mg PO Q6H PRN (Reason: pain) Qty: 14 0RF acetaminophen 500 mg capsule 1,000 mg PO Q8H PRN (Reason: fever or pain) Qty: 14 0RF lidocaine 5 % adhesive patch,medicated 1 patch topical DAILY PRN (Reason: chest wall pain) Qty: 15 0RF Rx Instructions: leave on most painful area for up to 12 hrs No Action cholecalciferol (vitamin D3) 50 mcg (2,000 unit) capsule 50 mcg PO DAILY 90 Days Qty: 90 1RF cyclobenzaprine 10 mg tablet 10 mg PO TID PRN (Reason: pain, muscle spasm) Qty: 15 0RF acetaminophen [Tylenol Extra Strength] 500 mg tablet 1,000 mg PO Q6H PRN (Reason: fever or pain) Qty: 20 0RF ibuprofen 400 mg tablet 400 mg PO TID PRN (Reason: fever or pain) Qty: 30 0RF Referrals: Massiel Soares MD [Physician, Internal Medicine] Interventions: ED Discharge Assessment Last Done: 01/03/25 06:57 Discharge Date/Time: 01/03/25 06:59 Print Language: Urdu
[2025-01-03 05:47] VITALS: BP 134/87; PULSE 91; RESP 13; TEMP 36.7; O2SAT 99
[2025-01-03 05:49] LABS: Hematocrit 40.4 % (37.0-47.0); Hemoglobin 13.9 g/dl (12.0-16.0); Imm Gran Abs Auto 0.01 X10*3/uL (0.00-0.03); Imm Gran Pct Auto 0.2 % (0.0-0.4); Lymphocytes Absolute Auto 1.7 X10*3/uL (1.2-4.9); MANUAL DIFF FLAG NO; Mean Corpuscular HGB Conc 34.4 g/dl (31.0-35.0); Mean Corpuscular Hemoglobin 29.9 pg (27.0-33.0); Mean Corpuscular Volume 86.9 fL (80.0-98.0); NRBC Abs Auto 0.000 X10*3/uL (0.0-0.012); NRBC Pct Auto 0.0 /100WBC (0.0-0.2); Platelet Count 356 X10*3/uL (160-400); Red Blood Count 4.65 X10*6/uL (4.20-5.50); White Blood Count 6.6 X10*3/uL (4.8-10.8)
[2025-01-03 05:55] LABS: INTERNATIONAL NORM RATIO 1.0 (0.9-1.1); Prothrombin Time 11.8 SEC (10.9-12.4)
[2025-01-03 06:09] LABS: Alanine Aminotransferase 25 U/L (0-31); Albumin Level 4.5 g/dL (3.5-5.0); Alkaline Phosphatase 75 U/L (39-117); Anion Gap 12 (12-20); Aspartate Amino Transferase 25 U/L (5-31); Blood Urea Nitrogen 11 mg/dL (9-16); Calcium 9.4 mg/dL (8.4-10.2); Carbon Dioxide 23 mmol/L (22-29); Chloride 110 mmol/L (96-108); Creatinine Clr Calc Pharmacy 108.4; Estimated Glomerular Filt Rate > 60; Potassium 3.9 mmol/L (3.3-5.1); Sodium 141 mmol/L (135-145); Total Protein 7.4 g/dL (6.5-8.0)
[2025-01-03 06:13] LABS: Troponin-I High Sensitivity < 2.7 ng/L (<3.5-17.0)
[2025-01-03 06:16] LABS: D Dimer High Sensitivity < 150 NG/ML
[2025-01-03 06:35] VITALS: BP 124/73; PULSE 82; RESP 15; TEMP 36.7; O2SAT 98
[2025-01-03] MEDS: Lidocaine 4 % Patch ADH..PATCH 1 PATCH TRANSDERMA (06:42)
[2025-01-03 06:57] VITALS: BP 124/73; PULSE 82; RESP 15; TEMP 36.7; O2SAT 98
[2025-01-03 07:08] LABS: Appearance Urine Clear; Glucose Urine UA Negative (Negative); PH 5.5 (5.0-9.0); Specific Gravity - Urine <= 1.005 (1.005-1.025); UMIC TRIGGER UACC YES
[2025-01-03 07:14] LABS: UACC Culture Trigger YES
== END 2025-01-03 06:59 | disposition home or self-care (01) ==
PROVIDERS: Emergency Provider Emergency Medicine; PCP Student in an Organized Health Care Education/Training Program
DX: R07.89 Other chest pain (principal)
CPT/HCPCS: 36415; 71045; 80053; 81001; 81003; 84484; 84702; 85025; 85379; 85610; 86140; 87086; 93005; 96374; 99284; 99285; J1885

== ENCOUNTER → 2025-01-03 05:23 | Outpatient (BNV) | payer OTHER, SELFPAY | PROVIDERS: Emergency Provider Emergency Medicine; PCP Student in an Organized Health Care Education/Training Program; Visit Provider Internal Medicine | DX: R07.89 Other chest pain (principal) | CPT/HCPCS: 93010 ==

== ENCOUNTER → 2025-01-03 05:58 | Outpatient (BNV) | payer OTHER, SELFPAY | PROVIDERS: Emergency Provider Emergency Medicine; PCP Student in an Organized Health Care Education/Training Program; Visit Provider Radiology Vascular & Interventional Radiology | DX: R06.02 Shortness of breath (principal) | CPT/HCPCS: 71045 ==

== ENCOUNTER 2025-01-09 16:14 | Outpatient (AMB) | payer OTHER, SELFPAY ==
[2025-01-09 16:17] VITALS: BP 138/86; PULSE 88; TEMP 36.8; O2SAT 99; BMI 30.4
--- NOTE | 2025-01-09 16:17 | AM.OFFWIN_ITS ---
Intake Vital Signs 01/09/25 16:17 Height 5 ft 4 in Weight 177 lb BMI 30.4 BP 138/86 Blood Pressure Location Lt brachial Position Sitting Pulse 88 Pulse Source Pulse Oximeter Temp 98.2 F Temp Source Oral Pulse Oximetry (%) 99 Oxygen Delivery Method Room Air Intake Visit Reasons: EP-rt side abd pain Intake Note: pt presents with RUQ pain and right mid back pain starting this morning Patient Tobacco Use Status: Never used Tobacco Allergies meloxicam Adverse Reaction (Intermediate, Verified 01/09/25 16:21) heart palpitations Do you need a note to return to daycare/school/sports/work: No HPI HPI Comments History of Present Illness Details History of Present Illness - The patient is a 39-year-old female pr esenting with abdominal pain. - The patient reports waking up with a c onstant sharp pain in the right upper quadrant with radiation to the upper back. - The pain is exacerbated by deep breath ing and twisting movements. - No associated symptoms such as nausea, vomiting, diarrhea, constipation, fever, or urinary symptoms were reported. - No history of recent dietary changes, medication changes, surgeries, or . - She denies sick contacts, travel, CP, SOB, hematuria, dysuria, or vaginal discharge. - She denies any trauma or falls. She de nies . - Her LMP was Tuesday. - She denies history of gallstones, surg eries, or GERD. Physical Exam General: Cooperative, healthy appearing, uncomfortable, no acute distress and well developed Orientation: Patient oriented x3 Limitations: No limitations Respiratory: Normal respiratory effort and able to speak in complete sentences. Clear to auscultation bilaterally. No w/r/r noted. Cardiovascular: Regular rate and rhythm. Normal S1 and S2. No m/r/g noted. GI: Hypoactive BS noted. Normal to inspection. TTP of the RUQ. +guarding noted. +[place] noted. Negative CVA tenderness noted. Skin: No rashes or lesions noted Patient was informed and verbally consented to the use of an ambient scribe for clinic note documentation during this visit. [facility] Medical History Obesity (BMI 30-39.9) Pure hypercholesterolemia COVID-19 vaccine series completed RUTHY I (cervical intraepithelial neoplasia I) Weight gain Surgical History No pertinent past surgical history Family History Mother Hypertension Father Hypertension Diabetes Social History Household Members: Spouse and Children Housing: Apartment Alcohol intake: current Alcohol intake frequency: holidays/special occasions only Alcohol type: beer Patient Tobacco Use Status: Never used Tobacco e-Cigarette/Vaping Use: Never Used Second Hand Smoke Exposure: No service: No Current 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 status: 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: No Sexual orientation: Straight/Heterosexual Gender identity: Female Cognitive needs: No Hearing needs: No Vision needs: No Female Reproductive History Menstrual Age of Menarche: 10 Review of Systems Const All systems reviewed & are unremarkable except as noted in HPI and below Physical Exam Vital Signs: Last Vital Signs Temp 98.2 F 01/09/25 16:17 Pulse 88 01/09/25 16:17 BP 138/86 01/09/25 16:17 Pulse Ox 99 01/09/25 16:17 Oxygen Delivery Method Room Air 01/09/25 16:17 BMI result Body Mass Index 30.4 Results AMB Urinalysis, Automated UA Leukoctes 0 Eda/uL Last Edit by Sandy Pink CMA on 01/09/25 16:25 UA Nitrite Negative Last Edit by Sandy Pink CMA on 01/09/25 16:25 UA Urobilinogen 0.2 mg/dL Last Edit by Sandy Pink CMA on 01/09/25 16:25 UA Protein 0 mg/dL Last Edit by Sandy Pink CMA on 01/09/25 16:25 UA pH 6.0 Last Edit by Sandy Pink CMA on 01/09/25 16:25 UA Blood 0 Enrique/uL Last Edit by Sandy Pink CMA on 01/09/25 16:25 UA Specific [place] 1.010 Last Edit by Sandy Pink CMA on 01/09/25 16:25 UA Ketone Negative Last Edit by Sandy Pink CMA on 01/09/25 16:25 UA Bilirubin 0 mg/dL Last Edit by Sandy Pink CMA on 01/09/25 16:25 UA Glucose 100 mg/dL Last Edit by Sandy Pink CMA on 01/09/25 16:25 AMB Test Urine AMB Test Urine Negative Last Edit by Sandy Pink CMA on 16:34 Results Reviewed Results Reviewed: Laboratory Last Values Urine pH (Auto) 6.0 01/09/25 16:17 Specific [place] (Auto) 1.010 01/09/25 16:17 Urine Protein (Auto) 0 mg/dL 01/09/25 16:17 Glucose (UA)(Auto) 100 mg/dL 01/09/25 16:17 Urine Ketones (Auto) Negative 01/09/25 16:17 Urine Blood (Auto) 0 Enrique/uL 01/09/25 16:17 Urine Nitrite (Auto) Negative 01/09/25 16:17 Urine Bilirubin (Auto) 0 mg/dL 01/09/25 16:17 Urine Urobilinogen (Auto) 0.2 mg/dL 01/09/25 16:17 Leukocyte Esterase (Auto) 0 Eda/uL 01/09/25 16:17 Assessment & Plan Assessment & Plan (1) RUQ abdominal pain: Code(s): R10.11 - Right upper quadrant pain Plan Most likely cholecystitis vs cholelithiasis vs gastritis vs PUD UA in the office +glucose HCG neg plan - advised her to go to the ER for an evaluation - will call the ER for an expect - pt will drive herself Orders: Orders AMB Urinalysis Automated Today R10.9 - Unspecified abdominal pain AMB HCG Urine Test Today Z32.02 - Encounter for test, result negative Coding Level of Care Code Est Pt Level 3 (75111) Diagnoses RUQ abdominal pain R10.11
--- OUTSIDE RECORDS SUMMARY | 2025-01-09 18:05 | XMS_ITS | Clinical Summary ---
Author Organization 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
== END 2025-01-09 16:53 | disposition home or self-care (01) ==
PROVIDERS: PCP Student in an Organized Health Care Education/Training Program; Visit Provider Physician Assistant Medical
DX: R10.9 Unspecified abdominal pain (principal); Z32.02 Encounter for pregnancy test, result negative; R10.11 Right upper quadrant pain

== ENCOUNTER 2025-01-09 16:52 | Emergency (ER) | payer OTHER, SELFPAY ==
--- NOTE | ~2025-01-09 | US_ITS ---
CLINICAL HISTORY: RUQ tenderness US ABDOMEN LIMITED Comparison: None provided Findings: Visualized portions of the pancreas are unremarkable. Visualized IVC appears normal caliber. Normal size liver is echogenic. 8 x 6 x 9 mm irregular hypoechoic focus in the right hepatic lobe. There is no intrahepatic bile duct dilatation. Common bile duct measures 3.3 mm. The gallbladder is normal. There is no sonographic Mckee sign. The main portal vein is antegrade. Right kidney length is 10.5 cm. No hydronephrosis. No ascites. IMPRESSION: 1. No cholelithiasis or acute cholecystitis. 2. No significant biliary ductal dilatation. 3. Hepatic steatosis. Subcentimeter hypoechoic focus in the right hepatic lobe could represent a focal area of fatty. A space occupying lesion is not entirely excluded. This document has been electronically signed by: Sherry Costa DO on 01/09/2025 18:31:41
--- NOTE | 2025-01-09 16:55 | ED.GENADULT ---
HPI - General Adult General Chief complaint: Abdominal Pain Stated complaint: R side/back pain Time Seen by Provider: 01/09/25 18:35 History of Present Illness ED Provider: Dee RAY narrative: The patient is a 39-year-old female who presents for evaluation a right upper quadrant abdominal pain that began this morning. It is not been associated with any nausea or vomiting. She has never had pain like this before. She can not think of any injury that would have caused this pain. The pain is worse with certain movements. It is also worse when she takes a deep breath. 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 Interestingly the patient was here 1 week ago for left anterior chest pain and had a negative workup and was discharged with a diagnosis of chest wall pain. She says this pain today is different. She has had no cough or sputum. No fever, sweats, chills. No nausea or vomiting although she says she has not had much of an appetite today. She is on no medications aside from occasional ibuprofen. She is not on any control or other hormonal treatment. No IUD. No Nexplanon device. Related Data Previous Rx's ?Medication ?Instructions ?Recorded cholecalciferol (vitamin D3) 50 50 mcg PO DAILY 90 days #90 caps 02/12/24 mcg (2,000 unit) capsule acetaminophen 500 mg capsule 1,000 mg (2 x 500 mg) PO Q8H PRN 01/03/25 fever or pain #14 caps ibuprofen 400 mg tablet 400 mg PO Q6H PRN pain #14 tabs 01/03/25 lidocaine 5 % topical patch 1 patch topical DAILY PRN chest 01/03/25 wall pain #15 ea acetaminophen 500 mg capsule 1,000 mg (2 x 500 mg) PO Q8H PRN 01/09/25 fever or pain #14 caps famotidine 40 mg tablet 40 mg PO DAILY #30 tabs 01/09/25 ibuprofen 400 mg tablet 400 mg PO Q6H PRN pain #14 tabs 01/09/25 sucralfate 100 mg/mL oral 10 ml PO QID PRN Upper abdominal 01/09/25 suspension pain #420 mL Allergies Allergy/AdvReac Type Severity Reaction Status Date / Time meloxicam AdvReac Intermediate heart Verified 01/09/25 17:01 palpitations Review of Systems Review of Systems: Yes all other systems are reviewed and are negative [facility] Past Medical History Medical History Obesity (BMI 30-39.9) Pure hypercholesterolemia COVID-19 vaccine series completed RUTHY I (cervical intraepithelial neoplasia I) Weight gain Surgical History No pertinent past surgical history Family History Family History Mother Hypertension Father Hypertension Diabetes Social History Social History Household Members: Spouse and Children Housing: Apartment Alcohol intake: current Alcohol intake frequency: holidays/special occasions only Alcohol type: beer Patient Tobacco Use Status: Never used Tobacco e-Cigarette/Vaping Use: Never Used Second Hand Smoke Exposure: No Advance Directives: No Advance Directives Information Provided: Yes Do you have a plan to hurt others: No Plan service: No Current 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 status: 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 Orientation/consciousness: patient oriented x3 HENMT Other: The face is symmetrical. ?Mucous membranes moist. Eyes Other: Pupils are round equal, conjunctivae are clear, extraocular movements intact General: appearance normal, both eyes and all related structures Neck Neck: Yes normal visual inspection, Yes full ROM and Yes no lymphadenopathy Chest Other: At 1st I thought there was some chest wall tenderness near the right anterior costal margin however on a more formal exam she seemed more tender in the right upper quadrant of the abdomen than the chest wall. Resp Effort & Inspection: normal respiratory effort Auscultation: clear to auscultation bilaterally Cardio Rate: regular rate Rhythm: regular rhythm Heart sounds: S1 normal heart sound present and S2 normal heart sound present GI Other: There is right upper quadrant tenderness without rebound or guarding. No Mckee's sign. The abdomen is soft. Back/Spine/Pelvis Other: No CVA percussion tenderness on either side Skin Other: The skin is dry and unremarkable General skin exam: no rashes or lesions noted Neuro General: patient oriented x3, moves all extremities, no focal motor deficits and CN's II-XI intact bilaterally Extrem Other: There is no calf swelling or tenderness. No asymmetry. No peripheral edema. Course Course Course Narrative: This is a rapid medical exam performed by Kyaw Suazo NP: Additional HPI, ROS, PE not included below will be deferred to primary provider. Patient is a 39-year-old Kiswahili speaking female referred from walk in for evaluation of RUQ pain radiating to back. Pain constant all day since 5am. Denies N/V/D. Plan: labs, u/s Medical Decision Making Medical Decision Making MDM Narrative: The patient is a 39-year-old who presents with what seems to be right upper quadrant pain. She has a right upper quadrant tenderness but she does not really seemed to have an acute abdomen. She has had no nausea or vomiting. No fever, sweats, chills. On my 1st exam I thought she had more costal margin tenderness than abdominal tenderness. However when I fully flattened her out and reexamined her it seemed to be more abdominal tenderness. The pain is mildly pleuritic. Interestingly the patient was here last week for left upper chest pain that seems to be chest wall pain. An ultrasound of the right upper quadrant shows no gallstones and no signs of biliary disease. Additionally it showed no hydronephrosis. The patient has no urinary symptoms. She has a white count of 4.6 with a an unremarkable differential. LFTs and lipase are normal. test is normal. Basic metabolic panel is unremarkable. D-dimer is normal. Given this essentially negative workup I do not think she is having biliary colic or renal colic. I doubt she has any other dangerous intra-abdominal process. Given her negative D-dimer I do not think she has a pulmonary embolism. She has no other respiratory symptoms to suggest any other possible pulmonary cause of her pain. Overall she looks well and has normal vital signs. I am not certain if this pain might be gastritis or some kind of a musculoskeletal pain. She will be prescribed famotidine and sucralfate and case of gastritis. Also ibuprofen and acetaminophen in case of musculoskeletal pain. She should follow up with her PCP. Return if worse. Lab Data 01/09/25 17:26 01/09/25 17:27 Labs: Lab Results 01/09/25 01/09/25 01/09/25 Range/Units 17: 17:27 20:09 WBC 4.6 L (4.8-10.8) X10*3/uL RBC 4.35 (4.20-5.50) X10*6/uL Hgb 12.8 (12.0-16.0) g/dl Hct 38.8 (37.0-47.0) % MCV 89.2 (80.0-98.0) fL MCH 29.4 (27.0-33.0) pg MCHC 33.0 (31.0-35.0) g/dl RDW 12.3 (11.0-16.0) % Plt Count 361 (160-400) X10*3/uL MPV 9.4 (9.4-12.3) fL Immature Gran % (Auto) 0.2 (0.0-0.4) % Neut % (Auto) 53.4 (45-73) % Lymph % (Auto) 37.3 (20-40) % [place] % (Auto) 7.8 (2-11) % Eos % (Auto) 0.9 (0-4) % Baso % (Auto) 0.4 (0-2) % Lymph # (Auto) 1.7 (1.2-4.9) X10*3/uL [place] # (Auto) 0.4 (0.1-1.2) X10*3/uL Eos # (Auto) 0.0 (0.0-0.4) X10*3/uL Baso # (Auto) 0.0 (0.0-0.2) X10*3/uL Abs Immat Gran (auto) 0.01 (0.00-0.03) X10*3/uL Absolute Neuts (auto) 2.5 (2.0-8.3) x10*3/uL Absolute Nucleated RBC 0.000 (0.0-0.012) X10*3/uL Nucleated RBC % (auto) 0.0 (0.0-0.2) /100WBC D-Dimer High Sensitivty 157 NG/ML Sodium 141 (135-145) mmol/L Potassium 3.7 (3.3-5.1) mmol/L Chloride 108 (96-108) mmol/L Carbon Dioxide 27 (22-29) mmol/L Anion Gap 10 L (12-20) BUN 8 L (9-16) mg/dL Creatinine 0.71 (0.5-1.4) mg/dL Estim Creat Clear Calc 108.1 Estimated GFR > 60 Random Glucose 90 (60-115) mg/dL Calcium 9.3 (8.4-10.2) mg/dL Total Bilirubin 0.3 (0.0-1.0) mg/dL AST 23 (5-31) U/L ALT 24 (0-31) U/L Alkaline Phosphatase 66 (39-117) U/L C-Reactive Protein < 0.10 (< or = 0.50) mg/dL Total Protein 7.3 (6.5-8.0) g/dL Albumin 4.6 (3.5-5.0) g/dL Lipase 18 (8-78) U/L Beta HCG, Quant < 2 mIU/mL Discharge Plan Discharge Clinical Impression: Right upper quadrant abdominal pain Patient Disposition: Home, Self-Care Additional Instructions: Your testing today does not show any obvious bad process. You have no gallstones in your gallbladder. There was no sign of a kidney stone causing an obstruction in your right kidney. Your blood testing is reassuring. There was no sign of infection. There was no sign of a blood clot in your lungs. I am not certain if this pain is a muscular pain were if this pain might be a pain from your stomach, a condition called gastritis. I have sent a prescription for the medication famotidine which you may take daily. This should help if your pain is related to gastritis. I have also sent a prescription for a medication called sucralfate which can also help with gastritis. You may take the sucralfate as needed to see if it helps. If this sucralfate and the famotidine are not helpful then this is probably a muscular pain. In that case I would recommend using ibuprofen and acetaminophen. Please follow up soon with your regular doctor. Return to the emergency room if significantly worse. Prescriptions: New famotidine 40 mg tablet 40 mg PO DAILY Qty: 30 0RF sucralfate 100 mg/mL suspension 10 ml PO QID PRN (Reason: Upper abdominal pain) Qty: 420 0RF Rx Instructions: swish in mouth and swallow; use after food/drink ibuprofen 400 mg tablet 400 mg PO Q6H PRN (Reason: pain) Qty: 14 0RF acetaminophen 500 mg capsule 1,000 mg PO Q8H PRN (Reason: fever or pain) Qty: 14 0RF No Action cholecalciferol (vitamin D3) 50 mcg (2,000 unit) capsule 50 mcg PO DAILY 90 Days Qty: 90 1RF ibuprofen 400 mg tablet 400 mg PO Q6H PRN (Reason: pain) Qty: 14 0RF acetaminophen 500 mg capsule 1,000 mg PO Q8H PRN (Reason: fever or pain) Qty: 14 0RF lidocaine 5 % adhesive patch,medicated 1 patch topical DAILY PRN (Reason: chest wall pain) Qty: 15 0RF Rx Instructions: leave on most painful area for up to 12 hrs Interventions: ED Discharge Assessment Last Done: 01/09/25 21:13 Discharge Date/Time: 01/09/25 21:14 Print Language: Kiswahili
[2025-01-09 16:59] VITALS: BP 152/98; PULSE 88; RESP 16; TEMP 36.6; O2SAT 99; BMI 29.9
[2025-01-09 17:32] LABS: MANUAL DIFF FLAG NO
[2025-01-09 17:33] LABS: Hematocrit 38.8 % (37.0-47.0); Hemoglobin 12.8 g/dl (12.0-16.0); Imm Gran Abs Auto 0.01 X10*3/uL (0.00-0.03); Imm Gran Pct Auto 0.2 % (0.0-0.4); Lymphocytes Absolute Auto 1.7 X10*3/uL (1.2-4.9); Mean Corpuscular HGB Conc 33.0 g/dl (31.0-35.0); Mean Corpuscular Hemoglobin 29.4 pg (27.0-33.0); Mean Corpuscular Volume 89.2 fL (80.0-98.0); NRBC Abs Auto 0.000 X10*3/uL (0.0-0.012); NRBC Pct Auto 0.0 /100WBC (0.0-0.2); Platelet Count 361 X10*3/uL (160-400); Red Blood Count 4.35 X10*6/uL (4.20-5.50); White Blood Count 4.6 X10*3/uL (4.8-10.8)
[2025-01-09 18:03] LABS: Alanine Aminotransferase 24 U/L (0-31); Albumin Level 4.6 g/dL (3.5-5.0); Alkaline Phosphatase 66 U/L (39-117); Anion Gap 10 (12-20); Aspartate Amino Transferase 23 U/L (5-31); Blood Urea Nitrogen 8 mg/dL (9-16); Calcium 9.3 mg/dL (8.4-10.2); Carbon Dioxide 27 mmol/L (22-29); Chloride 108 mmol/L (96-108); Creatinine Clr Calc Pharmacy 108.1; Estimated Glomerular Filt Rate > 60; Lipase 18 U/L (8-78); Potassium 3.7 mmol/L (3.3-5.1); Sodium 141 mmol/L (135-145); Total Protein 7.3 g/dL (6.5-8.0)
[2025-01-09 20:25] LABS: D Dimer High Sensitivity 157 NG/ML
[2025-01-09 21:13] VITALS: BP 129/85; PULSE 75; RESP 16; TEMP 36.4; O2SAT 100
== END 2025-01-09 21:14 | disposition home or self-care (01) ==
PROVIDERS: Registered Nurse Emergency; Emergency Provider Emergency Medicine; PCP Internal Medicine
DX: R10.11 Right upper quadrant pain (principal)
CPT/HCPCS: 36415; 76705; 80053; 81003; 81025; 83690; 84702; 85025; 85379; 86140; 99212; 99284

== ENCOUNTER → 2025-01-09 16:58 | Outpatient (BNV) | payer OTHER, SELFPAY | PROVIDERS: Emergency Provider Emergency Medicine; PCP Internal Medicine; Visit Provider Radiology Diagnostic Radiology | DX: K76.0 Fatty (change of) liver, not elsewhere classified (principal) | CPT/HCPCS: 76705 ==

== ENCOUNTER 2025-02-13 16:59 | Outpatient (AMB) | payer OTHER, SELFPAY ==
[2025-02-13 17:12] VITALS: BP 122/78; PULSE 77; O2SAT 98; BMI 30.7
--- NOTE | 2025-02-13 17:12 | MHC.PC.OV ---
Vital Signs 02/13/25 17:12 Height 5 ft 4 in Weight 179 lb BMI 30.7 BP 122/78 Blood Pressure Location Lt brachial Position Sitting Pulse 77 Pulse Source Pulse Oximeter Pulse Oximetry (%) 98 Oxygen Delivery Method Room Air Intake Visit Reasons: annual exam Sports Nutritionist Required: No Accompanied by: Self / Same As Patient Allergies meloxicam Adverse Reaction (Intermediate, Verified 02/13/25 18:05) heart palpitations Medication List - Last Reconciled 02/13/25 by Massiel Bui MD acetaminophen 1,000 mg (2 x 500 mg) PO Q8H PRN acetaminophen 1,000 mg (2 x 500 mg) PO Q8H PRN cholecalciferol (vitamin D3) 50 mcg PO DAILY 90 days famotidine 40 mg PO DAILY ibuprofen 400 mg PO Q6H PRN ibuprofen 400 mg PO Q6H PRN lidocaine 5% 1 patch topical DAILY PRN sucralfate 10 mL PO QID PRN Tobacco use date assessed: 07/23/24 Dental Screening Dental Screen Date: 07/23/24 HPI HPI Comments History of Present Illness Details The patient is a 39-year-old female presenting for her physical exam. She went to emergency room visit for abdominal pain. In December, she went to the emergency room for abdominal pain, where an abdominal ultrasound was performed. The ultrasound revealed fatty liver, with no other abnormalities noted in the gallbladder or elsewhere in the abdomen. During that visit, labs including white blood cell count, hemoglobin, renal function, glucose, and liver enzymes were all normal. 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 She uses Tylenol as needed for pain management. She complains of hair loss and thyroid stimulating hormone will be ordered. The patient's current medications include Tylenol, vitamin B, famotidine, ibuprofen as needed, a lidocaine patch as needed, and Carafate. She has a known allergy to meloxicam. She has no prior surgical history. Her mother has a history of high blood pressure and her father has diabetes. She denies ever smoking and reports drinking beer on special occasions. She denies any feelings of depression or anxiety. - Cholesterol screening was recommended as it was not performed during the recent emergency room visit. - Recent labs from December showed normal white blood cell count, hemoglobin, renal function, glucose, and liver enzymes. - Pap smear done 2024 and was normal. - Declines flu vaccine today. [facility] Medical History (Updated 02/13/25 @ 18:15 by Massiel Bui MD) Obesity (BMI 30-39.9) Pure hypercholesterolemia COVID-19 vaccine series completed RUTHY I (cervical intraepithelial neoplasia I) Weight gain Surgical History No pertinent past surgical history Family History Mother Hypertension Father Hypertension Diabetes Social History Household Members: Spouse and Children Housing: Apartment Alcohol intake: current Alcohol intake frequency: holidays/special occasions only Alcohol type: beer Patient Tobacco Use Status: Never used Tobacco Tobacco use type: Cigarette e-Cigarette/Vaping Use: Never Used Second Hand Smoke Exposure: No service: No Current 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 status: 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 1. Little interest or pleasure in doing things: not at all 2. Feeling down, depressed, or hopeless: not at all 3. Trouble falling or staying asleep, or sleeping too much: not at all 4. Feeling tired or having little energy: not at all 5. Poor appetite or overeating: not at all 6. Feeling bad about yourself - or that you are a failure or have let yourself or your family down: not at all 7. Trouble concentrating on things, such as reading the newspaper or watching television: not at all 8. Moving or speaking so slowly that other people could have noticed. Or the opposite - being so fidgety or restless that you have been moving around a lot more than usual: not at all 9. Thoughts that you would be better off or of hurting yourself in some way: not at all Total score: 0 Depression Screening Interpretation: Negative Depression Screening Done: Yes 91509 - PHQ-9 Billing: Yes Source: Developed by Drs. Jacoby Sheppard, Marci Dangelo, Luis Alberto Moraes and colleagues, with an educational melecio from [employer]. Thrive Questionnaire Date Thrive assessed: 07/23/24 I am a: Patient What is your living situation today?: I have a steady place to live Within the past 12 months, did the food you bought not last and you didn't have the money to get more?: Never true Within the past 12 months, did you worry whether your food would run out before you got money to buy more?: Never true Do you have trouble paying for medicines?: No Do you have trouble getting transportation to medical appointments?: No Do you have trouble paying your heating and electricity bill?: No Do you have trouble taking care of your child, family member or friend?: No Do you have trouble with day-to-day activities such as bathing, preparing meals, shopping, managing finances, etc.?: No Are you currently unemployed and looking for a job?: No Are you interested in more education?: No Please select the resources that you would like help with: None Currently or been in a relationship where the following occur: No concerns reported THRIVE Score: 0 AUDIT C Alcohol Use Questionnaire (AUDIT-C) 1. How often do you have a drink containing alcohol?: 2-4 times a month 2. How many drinks containing alcohol do you have on a typical day when you are drinking?: 1 or 2 3. How often do you have six or more drinks on one occasion?: Never Total Score: 2 FARZAD-7 AMB Questionnaire FARZAD-7 Date FARZAD - 7 assessed: 07/23/24 Feeling nervous, anxious, or on edge: 0 = Not at all Not being able to stop or control worryin = Not at all Worrying too much about different things: 0 = Not at all Trouble relaxin = Several days Being so restless that it is hard to sit still: 0 = Not at all Becoming easily annoyed or irritable: 0 = Not at all Feeling afraid as if something awful might happen: 0 = Not at all Total FARZAD-7 score (0-4 normal; 5-9 mild; 10-14 moderate; 15-21 severe): 1 Source: Developed by Marci Bennett Kurt Kroenke and colleagues, with an educational melecio from [employer]. FARZAD-7 Assessment Billing FARZAD-7 Assessment Tool: FARZAD-7 Assessment 30968 Review of Systems Const All systems reviewed & are unremarkable except as noted in HPI and below Card Denies chest pain at rest, Denies chest pain with activity, Denies edema, Denies irregular heart rhythm, Denies claudication, Denies dyspnea, Denies dyspnea on exertion, Denies orthopnea, Denies paroxysmal nocturnal dyspnea and Denies slow heart rate Resp Denies cough, Denies dyspnea and Denies dyspnea on exertion GI Denies abdominal pain, Denies change in bowel habits, Denies excessive flatus, Denies nausea and Denies vomiting Skin/Breast Denies bleeding lesions, Denies changing lesions and Denies rash Neuro Denies lack of coordination Physical exam (Primary Care) Vital Signs: Last Vital Signs Pulse 77 02/13/25 17:12 BP 122/78 02/13/25 17:12 Pulse Ox 98 02/13/25 17:12 Oxygen Delivery Method Room Air 02/13/25 17:12 BMI result Body Mass Index 30.7 BMI Assessment/Plan discussion: High BMI High, discussed plan: lifestyle, weight reduction, dietary and physical activity Tobacco/Smoking Status: Tobacco use Status Tobacco use date assessed 07/23/24 02/13/25 17:15 Patient Tobacco Use Status Never used Tobacco 02/13/25 17:15 Tobacco use type Cigarette 02/13/25 17:15 e-Cigarette/Vaping Use Never Used 02/13/25 17:15 PHQ-9: PHQ-9 Score PHQ-9: Total score 0 02/13/25 17:15 Depression Screening Interpretation: Negative Thrive Assessment: Date of Thrive Assessment Date Thrive assessed 07/23/24 02/13/25 17:15 Currently or been in a relationship where the following occur: No concerns reported HENMT Head: Yes normal to inspection, Yes normocephalic and Yes atraumatic Ears: external ears normal Eyes General: appearance normal, both eyes and all related structures Eyelids: Yes eyelids normal Conjunctivae: conjunctivae normal Neck Neck: Yes normal visual inspection and Yes supple Resp Effort & Inspection: normal respiratory effort Auscultation: clear to auscultation bilaterally Cardio Jugular venous distension: no JVD Rate: regular rate Rhythm: regular rhythm Heart sounds: S1 normal heart sound present and S2 normal heart sound present GI Inspection: Yes normal to inspection Palpation (GI): Soft to palpation and nontender Auscultation: normal bowel sounds Skin General skin exam: no rashes or lesions noted Neuro General: no focal motor deficits Extrem General: Yes full ROM Psych Appearance: grossly normal Coding Level of Care Code Est Pt Level 3 (16181) Est Pt Prev Care 18-39y(74491) Diagnoses Encounter for physical examination Z00.00 Hair loss L65.9 Additional Codes PHQ-9 - 05484 - PHQ-9 Billing: Yes ([id number]) FARZAD-7 Assessment Billing - FARZAD-7 Assessment Tool: FARZAD-7 Assessment 68560 ([id number]) Time Spent (min) 31 Assessment & Plan Assessment & Plan (1) Encounter for physical examination: Code(s): Z00.00 - Encounter for general adult medical examination without abnormal findings Category: Medical (2) Hair loss: Code(s): L65.9 - Nonscarring hair loss, unspecified Category: Medical Plan Plan 1. Physical exam Repeat in a year. 2. Nonscarring hair loss, unspecified For hair loss, it was recommended that the patient try the [id number] supplement Nutrafol for three months. If her condition does not improve, a referral to dermatology will be considered. Orders: Orders Lipid Panel Today E78.5 - Hyperlipidemia, unspecified Thyroid Stimulating Hormone Today L65.9 - Nonscarring hair loss, unspecified
--- OUTSIDE RECORDS SUMMARY | 2025-02-13 20:16 | XMS_ITS | Clinical Summary ---
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
== END 2025-02-13 18:15 | disposition home or self-care (01) ==
LOC: HO.HMCH 17:00
PROVIDERS: PCP Internal Medicine; Visit Provider Internal Medicine
DX: Z00.00 Encounter for general adult medical examination without abnormal findings (principal); L65.9 Nonscarring hair loss, unspecified

== ENCOUNTER → 2025-02-13 16:59 | Outpatient (BNVA) | payer OTHER, SELFPAY | PROVIDERS: PCP Internal Medicine; Visit Provider Internal Medicine | DX: Z00.00 Encounter for general adult medical examination without abnormal findings (principal); R10.9 Unspecified abdominal pain; L65.9 Nonscarring hair loss, unspecified; E78.5 Hyperlipidemia, unspecified | CPT/HCPCS: 96127; 99212; 99395 ==